=== PATIENT | male | born 1955 | race Hispanic/Latino ===

== ENCOUNTER 2018-08-15 13:19 | Outpatient (CLI) | payer BC ==
--- NOTE | 2018-08-19 13:03 | ULT ---
LOWER EXTREMITY ARTERIAL EVALUATION USING DOPPLER WAVEFORM ANALYSIS AND SEGMENTAL LIMB PRESSURES: 08/15/18 Segmental limb pressures could not be obtained in either lower extremity due to noncompressible tibia l arteries, most likely due to calcified yepez of the tibial vessels. With that being said, waveform analysis in the lower extremities, on the right demonstrated slightly abnormal waveform at the right common femoral level with relatively well preserved waveforms distally. On the left leg, the femoral waveform was relatively normal as was the popliteal with slightly diminished waveforms distally. This study would be consistent with possible right external iliac or common femoral artery disease and po ssibly tibioperoneal disease bilaterally based on heavy calcification and slightly abnormal waveforms .
== END 2018-08-15 13:20 | disposition home or self-care (01) ==
LOC: ULT 13:19
PROVIDERS: ATTEND Physician Assistant
DX: R09.89 Other specified symptoms and signs involving the circulatory and respiratory systems (principal)
CPT/HCPCS: 93922

== ENCOUNTER 2018-09-10 13:28 | Outpatient (CLI) | payer BC ==
--- NOTE | 2018-09-10 13:53 | RAD ---
RIGHT ANKLE 3 VIEWS: HISTORY: Fall ,Right ankle pain FINDINGS: The ankle mortise is maintained. No acute fracture or dislocation is identified. Calcaneal spurs and vascular calcifications are present.
--- NOTE | 2018-09-10 13:54 | RAD ---
RIGHT LEG 2 VIEWS: HISTORY: fall, right leg pain FINDINGS: The right tibia and fibula are intact.
--- NOTE | 2018-09-10 13:55 | RAD ---
XR Foot Rt 3 View STANDARD HISTORY: Fall, right foot pain FINDINGS: No fracture or dislocation is identified. Vascular calcifications and calcaneal spurs are present.
== END 2018-09-10 13:29 | disposition home or self-care (01) ==
LOC: BICRAD 13:28
PROVIDERS: ATTEND Physician Assistant
DX: M79.671 Pain in right foot (principal); M79.661 Pain in right lower leg; M25.571 Pain in right ankle and joints of right foot

== ENCOUNTER 2018-09-23 07:35 | Outpatient (CLI) | payer BC ==
--- NOTE | 2018-09-23 09:22 | CT ---
CTA ABDOMEN AND PELVIS AND LOWER EXTREMITIES WITH CONTRAST: 09/23/18 Axial images obtained following angio protocol with multiplanar reconstruction and 3D postprocessing. INDICATIONS: Right lower extremity pain. Peripheral arterial disease. FINDINGS: Abdominal aorta shows mild atherosclerotic change. There is no evidence of aneurysm. No evidence of d issection. Aortic branches including celiac artery, superior mesenteric artery, and renal arteries ap pear unremarkable with no evidence of stenosis. Aortic bifurcation is patent. The common iliac arteries are unremarkable. RIGHT LOWER EXTREMITY: Internal and external iliacs are unremarkable. Common femoral unremarkable. The profunda is patent and unremarkable. Superficial femoral arteries shows mild atherosclerotic changes throughout the thigh. There is mild s tenosis in Catracho's canal which does not appear to be hemodynamically significant. Popliteal artery shows atherosclerotic changes with calcification. No focal stenosis. Popliteal trifurcates below the knee. Atherosclerotic calcification seen in the arteries below the kn ee. There is three vessel runoff to the ankle. LEFT LOWER EXTREMITY: Internal and external iliacs are patent and unremarkable. Common femoral unremarkable. The profunda is patent and unremarkable. Superficial femoral arteries shows mild atherosclerotic calcification throughout its course. No evide nce of significant stenosis identified. Popliteal artery shows mild atherosclerotic changes without focal stenosis. Popliteal trifurcates below the knee space. Atherosclerotic calcification seen in all arteries below the knee. There is occlusion of the peroneal artery in the lower calf. Evidence of significant stenos is in the distal anterior tibial artery. Dorsal pedis is visualized at the foot and the posterior tib appears patent to the ankle although significant atherosclerotic disease is seen below the knees marco aterally. SOFT TISSUES: Liver, spleen, pancreas, adrenal glands and kidneys are unremarkable. Bowel loops unremarkable. IMPRESSION: Atherosclerotic changes seen in both lower extremities most pronounced below the knees bilaterally as described above. POS: [facility]
== END 2018-09-23 07:36 | disposition home or self-care (01) ==
LOC: CT 07:35
PROVIDERS: ATTEND Physician Assistant
DX: M79.661 Pain in right lower leg (principal); R68.89 Other general symptoms and signs; I70.201 Unspecified atherosclerosis of native arteries of extremities, right leg; I70.202 Unspecified atherosclerosis of native arteries of extremities, left leg
CPT/HCPCS: 75635; 82565

== ENCOUNTER 2019-07-24 07:38 | Outpatient (CLI) | payer MEDICARE ==
[2019-07-24] MEDS ORDERED: Iopamidol-370 76% 500 ML 1 ML ONE (09:24)
--- NOTE | 2019-07-24 09:57 | CT ---
CT ABDOMEN AND PELVIS WITH CONTRAST: COMPARISON: None. HISTORY: Constipation for 6 months. TECHNIQUE: Multiple contiguous axial images were obtained in a CT of the abdomen and pelvis with contrast. P.o. contrast was administered. Sagittal and coronal reformats were performed. FINDINGS: The liver, gallbladder, kidneys, adrenal glands, spleen, and pancreas are unremarkable. No free air, free fluid, or stranding changes are seen in the abdomen or pelvis. There is a moderate amount of stool throughout the colon. No obvious colon mass is appreciated. The small bowel is normal in caliber without significant distention. No abdominal or pelvic lymphadenop athy are seen. Atherosclerotic calcifications are seen in the aorta. Degenerative changes are seen in the spine. The visualized inferior thorax and abdominal wall soft t issues are unremarkable. IMPRESSION: Moderate stool retention in the colon. POS: [facility]
== END 2019-07-24 07:39 | disposition home or self-care (01) ==
LOC: BICCT 07:38
PROVIDERS: ATTEND Physician Assistant
DX: K59.00 Constipation, unspecified (principal)
CPT/HCPCS: 74177; 82565; Q9967

== ENCOUNTER 2019-10-15 08:11 | Outpatient (CLI) | payer MEDICARE ==
--- NOTE | 2019-10-15 09:20 | MRI ---
MRI BRAIN NONCONTRAST: DATE: 10/15/2019 HISTORY: 64-year-old male ICD-10: "R 41.3 memory deficit. " ICD-10: "R 26.89 balance problems" COMPARISON: None FINDINGS: There is no obstructive hydrocephalus. There is no midline shift or any other evidence of mass effect . There is no extra-axial fluid collection. There are T2-hyperintensities in the cerebral white matter consistent with moderate chronic ischemic white matter changes due to microvascular atheroscle rosis. There is diffuse brain parenchymal volume loss. There is no evidence of recent hemorrhage or restricted diffusion. At the inferior anterior aspect of the left middle cranial fossa, there is an a pproximately 1 cm focus of hypointense signal on gradient echo axial image. This region is isointense to adjacent bone and adjacent brain on FLAIR and T2 WI. It probably represents partial vol ume averaging with adjacent normal bone. The other possibility would be partially calcified small meningioma. There is no adjacent vasogenic edema, and therefore this is probably of little clinical s ignificance. IMPRESSION: 1) Involutional changes and moderate chronic ischemic white matter changes. 2) no acute or aggressive intracranial process.
== END 2019-10-15 08:12 | disposition home or self-care (01) ==
LOC: BICMRI 08:11
PROVIDERS: ATTEND Internal Medicine
DX: R41.3 Other amnesia (principal); R26.89 Other abnormalities of gait and mobility; I67.82 Cerebral ischemia
CPT/HCPCS: 70551

== ENCOUNTER 2020-03-26 01:32 | Inpatient (IN) | payer MEDICARE ==
[2020-03-26] MEDS ORDERED: Propofol 1,000 MG/100 ML VIAL IV ONE (01:41)
[2020-03-26 01:57] LABS: Mean Corpuscular HGB CONC 33.3 g/dL (32.0-36.0); Mean Corpuscular Hemoglobin 30.7 pg (27.0-31.0); Mean Platelet Volume 10.1 fL (7.4-10.4); Platelet Count 228 thou/uL (130-400); RBC Distribution Width 12.4 % (11.5-14.5); Red Blood Cell (RBC) Count 4.88 mill/uL (4.70-6.10); White Blood Cell (WBC) Count 13.7 thou/uL (4.8-10.8)
[2020-03-26 02:07] LABS: INR-International Normal Ratio 0.9; PTT 29.4 sec (22.9-36.1); Prothrombin Time 12.4 sec (12.0-14.7)
[2020-03-26] MEDS ORDERED: Ketamine 50 MG/ML (10ML VIAL) ONE (02:10)
[2020-03-26 02:18] LABS: ALT (SGPT) 20 U/L (8-55); AST (SGOT) 27 U/L (5-34); Albumin 2.9 g/dL (3.4-4.8); Alkaline Phosphatase 175 U/L (40-110); Anion Gap 27 mmol/L (10-20); BUN (Urea Nitrogen) 25 mg/dL (8.4-25.7); Bilirubin, Total 0.2 mg/dL (0.2-1.2); CK (CPK) 89 U/L (30-200); Calc. Creatinine Clearance 0 mL/min (70-130); Calcium 8.9 mg/dL (7.8-10.44); Carbon Dioxide 11 mmol/L (23-31); Chloride 102 mmol/L (98-107); Globulin 3.9 g/dL (2.4-3.5); Glucose 522 mg/dL (80-115); Potassium 5.9 mmol/L (3.5-5.1); Protein, Total 6.8 g/dL (5.8-8.1); Sodium 134 mmol/L (136-145)
[2020-03-26 02:20] LABS: Band 1 % (5-11); Eosinophils 4 % (0-10); Lymphocytes 42 % (21-51); MDiff Complete? YES; Monocytes 6 % (0-10); Neutrophil 44 % (42-75); Reactive Lymphocytes 3 % (0-10)
[2020-03-26 02:29] LABS: Actual Bicarbonate (HCO3a) 15.2 mEq/L (22-28); Base Excess (BEa) -12.2 mEq/L (-2.0 to +3.0); CO2 Tension 39.9 mmHg (35.0-45.0); O2 Tension (PaO2), arterial 272.1 mmHg (> 80.0)
[2020-03-26 02:30] LABS: Analyzer IN Cardio ER; Calcium, Ionized (arterial) 1.17 mmol/L (1.12-1.30); Carboxyhemoglobin (COHb) 0.9 gm% (0.0-3.0); Hemoglobin (Hb) 13.8 g/dL (14.0-18.0); Potassium - ABG Lab 4.12 mmol/L (3.70-5.30); Puncture Site RRA
[2020-03-26 02:31] LABS: ALV-art Gradient 391.025 mmHg (0-20)
[2020-03-26 02:39] LABS: Bacteria/HPF 1+ HPF (None Seen); Bilirubin Negative (Negative); Blood, Urine 2+ (Negative); Clarity Turbid (Clear); Glucose, Urine (Dipstick) Greater than 1000 mg/dL (Negative); Ketone, Urine Negative (Negative); Leukocyte Negative Leu/uL (Negative); Nitrite Negative (Negative); Protein, Urine (Dipstick) 300 mg/dL (Neg-Trace); Specific Gravity, Urine 1.026 (1.002-1.036); Squamous Epithelial 0-3 HPF (0-3); Urobilinogen Normal mg/dL (Less than 2)
[2020-03-26 02:40] LABS: Acetaminophen Less than 6.0 mcg/mL (10.0-30.0); Alcohol Less than 10 mg/dL (Less than 10); Salicylate Less than 8.0 mg/dL (15.0-30.0)
[2020-03-26] MEDS ORDERED: INSULIN REGULAR IN 0.9 % NACL 100 UNIT/100 ML BAG ONE (02:50)
[2020-03-26] MEDS ORDERED: Insulin Regular 300 UNITS/3 ML VIAL ONE (02:50)
[2020-03-26 03:13] LABS: Amphetamine Not Detected (NotDetected); Barbiturates Screen Not Detected (NotDetected); Benzodiazepine Screen Not Detected (NotDetected); Cocaine Metabolite Screen Not Detected (NotDetected); Medtox Control Line Valid? VALID (VALID); Medtox Reader # READER 4; Methadone Not Detected (NotDetected); Methamphetamine Not Detected (NotDetected); Opiate Screen Not Detected (NotDetected); Oxycodone Screen Not Detected (NotDetected); Phencyclidine (PCP) Not Detected (NotDetected); THC/Cannabinoid Screen Not Detected (NotDetected); Tricyclic Screen Not Detected (NotDetected)
[2020-03-26] MEDS ORDERED: Midazolam HCl 2 mg/2 ml Vial ONE (03:44)
[2020-03-26] MEDS ORDERED: Cefepime 2 GM VIAL ONE (03:46)
[2020-03-26] MEDS ORDERED: Vancomycin 1 GM/200 ML BAG ONE (03:46)
[2020-03-26 04:33] LABS: SARS-CoV-2 NAA Rapid Test Not Detected (NotDetected)
[2020-03-26] MEDS ORDERED: NS 0.9% w/ 20 MEQ KCL 1,000 ML IV PRN ×2 (05:09)
[2020-03-26] MEDS ORDERED: Electrolyte Replacement Protocol 1 EACH IVPB ONE (05:09)
[2020-03-26] MEDS ORDERED: Mag-Al 1200 mg/1200 mg/30 ML UDCUP PO PRN (05:09)
[2020-03-26] MEDS ORDERED: Bisacodyl 5 MG TAB PO PRN (05:09)
[2020-03-26] MEDS ORDERED: Milk Of Magnesia 30 ML UDCUP PO PRN (05:09)
[2020-03-26] MEDS ORDERED: Ondansetron PF 4 MG/2 ML Vial IVP PRN ×2 (05:09→05:12)
[2020-03-26] MEDS ORDERED: Sodium Chloride 0.9% 1,000 ML IV PRN ×4 (05:09)
[2020-03-26] MEDS ORDERED: D5 1/2 NS w/20 mEq KCL 1,000 ML IV PRN (05:09)
[2020-03-26] MEDS ORDERED: Norepinephrine 8 MG/0.9% NS 250 ML IVPB PRN (05:09)
[2020-03-26] MEDS ORDERED: Bisacodyl 10 MG SUPP PR PRN (05:09)
[2020-03-26] MEDS ORDERED: Acetaminophen 325 MG/10.15 ML UDCUP PO PRN (05:09)
[2020-03-26] MEDS ORDERED: Dextrose 5 %-0.45 % NaCl 1,000 ML IV PRN (05:09)
[2020-03-26] MEDS ORDERED: hydrALAZINE 20 MG/ML VIAL SLOW IVP PRN ×2 (05:12→16:26)
[2020-03-26] MEDS ORDERED: cloNIDine 0.1 MG TAB PO PRN (05:12)
[2020-03-26] MEDS ORDERED: Promethazine HCl 12.5 MG in Sodium Chloride 0.9% 50 ML IVPB PRN (05:12)
[2020-03-26] MEDS ORDERED: DISCONTINUE PREVIOUS NARCOTIC PAIN MEDICATIONS AND BENZODIAZEPINES FS SCH (05:15)
[2020-03-26] MEDS ORDERED: Ventilator Sedation Protocol 1 EACH FS SCH (05:15)
[2020-03-26] MEDS ORDERED: Lorazepam 2 MG/ML VIAL SLOW IVP PRN (05:15)
[2020-03-26] MEDS ORDERED: Fentanyl BOLUS 250 ML IVPB PRN (05:15)
[2020-03-26] MEDS ORDERED: Morphine 2 MG/ML VIAL SLOW IVP PRN (05:15)
[2020-03-26] MEDS ORDERED: Fentanyl CADD 100 ML IV SCH (05:15)
[2020-03-26] MEDS ORDERED: HUMULIN R 100 UNITS in Sodium Chloride 0.9% 100 ML IVPB SCH (05:15)
[2020-03-26] MEDS ORDERED: Propofol BOLUS 1,000 MG/100 ML VIAL IV PRN (05:15)
[2020-03-26] MEDS ORDERED: Propofol 1,000 MG/100 ML VIAL IV PRN (05:15)
--- NOTE | 2020-03-26 05:23 | PDOC.HHP ---
Hospitalist HPI Altered mental status History of Present Illness: Patient is a 65 year old male with PMH HTN, DM who presents to ED for altered mental status. Patient was walking to bed, he fell and became altered, BP was elevated and blood sugar 460, EMS called, in ED patient was agitated and not following commands, SBP was 280, patient intubated for airway protection. lactic acid 14, ketones elevated, CT and CTA head without acute defects, ph 7.2, UA suggestive of UTI, glucose 522. WBC 13. CXR unremarkable. Patient started on insulin drip, given vancomycin/cefepime, admitted for further workup and care. Allergies/Adverse Reactions: Allergy/AdvReac Type Severity Reaction Status Date / Time No Allergy Information Allergy Unverified 03/26/20 02:49 Available Home Medications: Medication Instructions Recorded Confirmed Type Unobtainable 03/26/20 03/26/20 History Past History: PMHx: DM, HTN PSHx: reviewed and not relevant FHx: reviewed and not relevant Social: reviewed and not relevant Hospitalist HPI ROS ROS unobtainable: due to endotracheal tube Hospitalist Exam Vitals: Vital Signs (12 hours) Temp Pulse 03/26/20 04:57 97.9 F 81 General - other findings: intubated, sedated Eye: PERRL, anicteric sclera ENT - other findings: et tube in place Neck: supple, symmetric, no JVD, no thyromegaly, no lymphadenopathy, no carotid bruit Heart: RRR, no murmur, no gallops, no rubs, normal peripheral pulses Respiratory: CTAB, no wheezes, no rales, no ronchi, normal chest expansion, no tachypnea, normal percussion Gastrointestinal: soft, non-tender, non-distended, normal bowel sounds, no palpable masses, no hepatomegaly, no splenomegaly, no bruit Extremities: no cyanosis, no clubbing, no edema Skin: normal turgor, no lesions, no rashes Neurological - other findings: sedated, no focal defecits noted Musculoskeletal: normal tone, normal strength, no muscle wasting Psychiatric - other findings: unable to evaluate Hospitalist Results Result Diagrams: 03/26/20 01:39 03/26/20 01:39 Lab results: Laboratory Last Values WBC 13.7 thou/uL (4.8-10.8) H 03/26/20 01:39 RBC 4.88 mill/uL (4.70-6.10) 03/26/20 01:39 Hgb 15.0 g/dL (14.0-18.0) 03/26/20 01:39 Hct 44.9 % (42.0-52.0) 03/26/20 01:39 MCV 92.0 fL (78.0-98.0) 03/26/20 01:39 MCH 30.7 pg (27.0-31.0) 03/26/20 01:39 MCHC 33.3 g/dL (32.0-36.0) 03/26/20 01:39 RDW 12.4 % (11.5-14.5) 03/26/20 01:39 Plt Count 228 thou/uL (130-400) 03/26/20 01:39 MPV 10.1 fL (7.4-10.4) 03/26/20 01:39 Neutrophils % (Manual) 44 % (42-75) 03/26/20 01:39 Band Neuts % (Manual) 1 % (5-11) L 03/26/20 01:39 Lymphocytes % (Manual) 42 % (21-51) 03/26/20 01:39 Reactive Lymphs % 3 % (0-10) 03/26/20 01:39 Monocytes % (Manual) 6 % (0-10) 03/26/20 01:39 Eosinophils % (Manual) 4 % (0-10) 03/26/20 01:39 Lymphocytes # Not Reportable 03/26/20 01:39 PT 12.4 sec (12.0-14.7) 03/26/20 01:39 INR 0.9 03/26/20 01:39 APTT 29.4 sec (22.9-36.1) 03/26/20 01:39 Specimen Type ARTERIAL 03/26/20 02:10 Puncture Site RRA 03/26/20 02:10 Bicarbonate Actual 15.2 mEq/L (22-28) L 03/26/20 02:10 ABG pH 7.20 (7.35-7.45) L* 03/26/20 02:10 ABG pCO2 39.9 mmHg (35.0-45.0) 03/26/20 02:10 ABG pO2 272.1 mmHg (> 80.0) H 03/26/20 02:10 ABG O2 Sat (Measured) 99.2 % (94.0-98.0) H 03/26/20 02:10 ABG Base Excess -12.2 mEq/L (-2.0 to +3.0) L 03/26/20 02:10 ABG Hematocrit 41.0 % (42.0-52.0) L 03/26/20 02:10 ABG Hemoglobin 13.8 g/dL (14.0-18.0) L 03/26/20 02:10 ABG Carboxyhemoglobin 0.9 gm% (0.0-3.0) 03/26/20 02:10 ABG Methemoglobin 0.90 gm% (0.04-1.52) 03/26/20 02:10 Anil Test POSITIVE 03/26/20 02:10 A-a O2 Gradient 391.025 mmHg (0-20) H 03/26/20 02:10 Sodium 134 mmol/L (135-148) L 03/26/20 02:10 Potassium 4.12 mmol/L (3.70-5.30) 03/26/20 02:10 Chloride 104 mmol/L (98-106) 03/26/20 02:10 Ionized Calcium 1.17 mmol/L (1.12-1.30) 03/26/20 02:10 Mode of Support SIMV 03/26/20 02:10 Mechanical Rate 14 min 03/26/20 02:10 Inspired O2 100 % 03/26/20 02:10 Tidal Volume 450 ml 03/26/20 02:10 Pressure Support 10 cmH2O 03/26/20 02:10 PEEP or CPAP 5.0 cmH2O 03/26/20 02:10 Sodium 134 mmol/L (136-145) L 03/26/20 01:39 Potassium 5.9 mmol/L (3.5-5.1) H 03/26/20 01:39 Chloride 102 mmol/L (98-107) 03/26/20 01:39 Carbon Dioxide 11 mmol/L (23-31) L 03/26/20 01:39 Anion Gap 27 mmol/L (10-20) H 03/26/20 01:39 BUN 25 mg/dL (8.4-25.7) 03/26/20 01:39 Creatinine 1.93 mg/dL (0.7-1.3) H 03/26/20 01:39 Estimated GFR (MDRD) 35 03/26/20 01:39 Glucose 522 mg/dL (80-115) H 03/26/20 01:39 POC Glucose 208 mg/dL (70-100) H 03/26/20 04:55 Lactic Acid 14.0 mmol/L (0.5-2.2) H* 03/26/20 01:39 Calcium 8.9 mg/dL (7.8-10.44) 03/26/20 01:39 Total Bilirubin 0.2 mg/dL (0.2-1.2) 03/26/20 01:39 AST 27 U/L (5-34) 03/26/20 01:39 ALT 20 U/L (8-55) 03/26/20 01:39 Alkaline Phosphatase 175 U/L (40-110) H 03/26/20 01:39 Creatine Kinase 89 U/L (30-200) 03/26/20 01:39 Troponin I Less than 0.010 ng/mL (< 0.028) 03/26/20 01:39 Serum Total Protein 6.8 g/dL (5.8-8.1) 03/26/20 01:39 Albumin 2.9 g/dL (3.4-4.8) L 03/26/20 01:39 Globulin 3.9 g/dL (2.4-3.5) H 03/26/20 01:39 Albumin/Globulin Ratio 0.7 g/dL (1.2-2.2) L 03/26/20 01:39 Urine Color Light-Yellow (Yellow) 03/26/20 02:21 Urine Clarity Turbid (Clear) A 03/26/20 02:21 Urine pH 6.0 (5.0-9.0) 03/26/20 02:21 Ur Specific [place] 1.026 (1.002-1.036) 03/26/20 02:21 Urine Protein 300 mg/dL (Neg-Trace) A 03/26/20 02:21 Urine Glucose (UA) Greater than 1000 mg/dL (Negative) A 03/26/20 02:21 Urine Ketones Negative mg/dL (Negative) 03/26/20 02:21 Urine Blood 2+ (Negative) A 03/26/20 02:21 Urine Nitrite Negative (Negative) 03/26/20 02:21 Urine Bilirubin Negative (Negative) 03/26/20 02:21 Urine Urobilinogen Normal mg/dL (Less than 2) 03/26/20 02:21 Ur Leukocyte Esterase Negative Abel[place]/uL (Negative) 03/26/20 02:21 Urine RBC 4-6 HPF (0-3) A 03/26/20 02:21 Urine WBC 7-10 HPF (0-3) A 03/26/20 02:21 Ur Squamous Epith Cells 0-3 HPF (0-3) 03/26/20 02:21 Urine Bacteria 1+ HPF (None Seen) A 03/26/20 02:21 Salicylates Less than 8.0 mg/dL (15.0-30.0) L 03/26/20 01:39 Urine Opiates Screen Not Detected (NotDetected) 03/26/20 02:21 Ur Oxycodone Screen Not Detected (NotDetected) 03/26/20 02:21 Urine Methadone Screen Not Detected (NotDetected) 03/26/20 02:21 Ur Propoxyphene Screen Not Detected (NotDetected) 03/26/20 02:21 Acetaminophen Less than 6.0 mcg/mL (10.0-30.0) L 03/26/20 01:39 Ur Barbiturates Screen Not Detected (NotDetected) 03/26/20 02:21 Ur Tricyclics Screen Not Detected (NotDetected) 03/26/20 02:21 Ur Phencyclidine Scrn Not Detected (NotDetected) 03/26/20 02:21 Ur Amphetamines Screen Not Detected (NotDetected) 03/26/20 02:21 U Methamphetamines Scrn Not Detected (NotDetected) 03/26/20 02:21 U Benzodiazepines Scrn Not Detected (NotDetected) 03/26/20 02:21 U Cocaine Metab Screen Not Detected (NotDetected) 03/26/20 02:21 U Cannabinoids Screen Not Detected (NotDetected) 03/26/20 02:21 Drug Screen Comment () 03/26/20 02:21 Plasma Alcohol Less than 10 mg/dL (Less than 10) 03/26/20 01:39 B-Hydroxybutyrate 0.31 mmol/L (0.02-0.27) H 03/26/20 01:39 Influenza A RNA INAAT Not Detected (NotDetected) 03/26/20 03:24 Influenza B RNA INAAT Not Detected (NotDetected) 03/26/20 03:24 SARS-CoV-2 Rap RNA(RT-PCR) Not Detected (NotDetected) 03/26/20 03:24 Additional comment: labs, imaging reports and ed documents reviewed as available. Hospitalist H&P A/P Plan: Patient is a 65 year old male with PMH HTN, DM who presents to ED for altered mental status. # DKA # sepsis # possible UTI # history of HTN Patient was walking to bed, he fell and became altered, BP was elevated and bloo d sugar 460, EMS called, in ED patient was agitated and not following commands, SBP was 280, patient intubated for airway protection. lactic acid 14, ketones elevated, CT and CTA head without acute defects, ph 7.2, UA suggestive of UTI, glucose 522. WBC 13. CXR unremarkable. Patient started on insulin drip, given vancomycin/cefepime, admitted for further workup and care. - admit to ICU - pulmonary consult - insulin drip, dka protocol - empiric vancomycin/zosyn - follow blood and urine cultures - appreciate critical care assistance with vent settings # DVT/GI ppx full code 56 minutes critical care time
[2020-03-26 05:45] LABS: Magnesium 1.9 mg/dL (1.6-2.6); Phosphorus 1.3 mg/dL (2.3-4.7)
[2020-03-26 06:00] LABS: Lactic Acid 3.4 mmol/L (0.5-2.2)
[2020-03-26] MEDS: Piperacillin/Tazobactam 3.375 GM in Sodium Chloride 0.9% 100 ML IVPB SCH ×4 (06:24→23:57)
[2020-03-26 06:31] LABS: Anion Gap 13 mmol/L (10-20); BUN (Urea Nitrogen) 24 mg/dL (8.4-25.7); Calc. Creatinine Clearance 54 mL/min (70-130); Calcium 7.3 mg/dL (7.8-10.44); Carbon Dioxide 15 mmol/L (23-31); Chloride 114 mmol/L (98-107); Glucose 263 mg/dL (80-115); Potassium 3.4 mmol/L (3.5-5.1); Sodium 139 mmol/L (136-145)
[2020-03-26] MEDS: Famotidine/PF 20 mg/2ml Vial SLOW IVP SCH (08:36)
--- NOTE | 2020-03-26 09:20 | CT ---
PRELIMINARY REPORT/[facility]/EMERGENCY AFTER HOURS PROCEDURE: Receipt of this report by the clinical staff was confirmed with Vanessa Atwood MD by Cecelia Montes on Mar 26, 2020 02:17:00 BLOOD BANK ORDER CONTROL CLERK. Addendum electronically signed by Kalyani Montes on March 26, 2020 2:17:18 AM BLOOD BANK ORDER CONTROL CLERK EXAM: CTA Head and Neck with Intravenous Contrast. CLINICAL HISTORY: *LEVEL 1 STROKE ALERT* M65, LSN @ 0120, PATIENT FOUND DOWN AND UNRESPONSIVE. TECHNIQUE: Axial CTA images of the head and neck performed with intravenous contrast. Two-dimensional MIP and/or three-dimensional MIP and volume rendered reformations were performed. Note: Per PQRS, the description of internal carotid artery percent stenosis, including 0 percent or n ormal exam, is based on [place] Symptomatic Carotid Endarterectomy Trial (NASCET) criteria. CONTRAST: With; ISOVUE 370,80mL COMPARISON: None provided. FINDINGS: CTA NECK: COMMON CAROTID ARTERIES No significant stenosis. No dissection or occlusion. INTERNAL CAROTID ARTERIES No stenosis by NASCET criteria. No dissection or occlusion. VERTEBRAL ARTERIES No significant stenosis. No dissection or occlusion. 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 CTA HEAD: ANTERIOR CEREBRAL ARTERIES No significant stenosis. No occlusion. No aneurysm. MIDDLE CEREBRAL ARTERIES No significant stenosis. No occlusion. No aneurysm. POSTERIOR CEREBRAL ARTERIES No significant stenosis. No occlusion. No aneurysm. BASILAR ARTERY No significant stenosis. No occlusion. No aneurysm. OTHER: SOFT TISSUES No acute finding. No masses or lymphadenopathy. BONES No acute osseous abnormality. IMPRESSION: Unremarkable CTA of the head and neck. ELECTRONICALLY SIGNED BY: Max Posey DO Mar 26, 2020 2:09:06 AM BLOOD BANK ORDER CONTROL CLERK This report is intended for review by the ordering physician only, in accordance of law. If you recei ve this report in error, please call [facility] at [phone]. FINAL REPORT CT ANGIOGRAM HEAD WITH 3D RENDERING. CT ANGIOGRAM NECK WITH 3D RENDERING EMERGENCY AFTER HOURS EXAM 1:57 A.M. 03/26/2020 FINDINGS: NG tube and endotracheal tubes are noted in place. There is some fluid in the esophagus. Small hypopl astic right vertebral artery which essentially ends in a PICA branch. No significant carotid artery s tenosis. Intracranially, there is no major branch occlusion or evidence for aneurysm. No M1 segment o cclusion. IMPRESSION: No significant stenosis or occlusion involving the neck or intracranially. This report is in agreement with preliminary report by [facility]. POS: [facility]
--- NOTE | 2020-03-26 09:22 | CT ---
PRELIMINARY REPORT/[facility]/EMERGENCY AFTER HOURS PROCEDURE: Receipt of this report by the clinical staff was confirmed with Vanessa Atwood MD by Cecelia Montes on Mar 26, 2020 02:17:00 SHELLFISH DREDGE OPERATOR. Addendum electronically signed by Kalyani Montes on March 26, 2020 2:17:38 AM SHELLFISH DREDGE OPERATOR EXAM: CT Head Without Intravenous Contrast. CLINICAL HISTORY: *LEVEL 1 STROKE ALERT* M65, LSN @ 0120, PATIENT FOUND DOWN AND UNRESPONSIVE. TECHNIQUE: Axial computed tomography images of the head/brain without intravenous contrast. COMPARISON: None provided. FINDINGS: BRAIN: Diffuse brain parenchymal volume loss with periventricular and subcortical white matter hypodensities . No acute intracranial hemorrhage, ventriculomegaly, or midline shift. ORBITS: No acute finding SINUSES AND MASTOIDS: The paranasal sinuses and mastoid air cells are clear. SOFT TISSUES: No significant facial or scalp soft tissue swelling evident. No radiopaque foreign body is seen. BONES: No acute skull fracture. IMPRESSION: 1. No acute intracranial abnormality. 2. Diffuse brain parenchymal atrophy with sequela of chronic small vessel ischemic disease. If there is persistent concern for infarct, recommend MRI. ELECTRONICALLY SIGNED BY: Max Posey DO Mar 26, 2020 2:05:45 AM SHELLFISH DREDGE OPERATOR This report is intended for review by the ordering physician only, in accordance of law. If you recei ve this report in error, please call [facility] at [phone]. FINAL REPORT BRAIN CT WITHOUT IV CONTRAST EMERGENCY AFTER HOURS STUDY 1:53 A.M. 03/26/2020 IMPRESSION: Age-related changes and chronic white matter ischemic change. No mass or bleed. This report is in agreement with preliminary report by [facility]. POS: [facility]
[2020-03-26 09:48] LABS: Anion Gap 11 mmol/L (10-20); BUN (Urea Nitrogen) 23 mg/dL (8.4-25.7); Calc. Creatinine Clearance 56 mL/min (70-130); Calcium 7.5 mg/dL (7.8-10.44); Carbon Dioxide 15 mmol/L (23-31); Chloride 117 mmol/L (98-107); Glucose 135 mg/dL (80-115); Potassium 3.4 mmol/L (3.5-5.1); Sodium 140 mmol/L (136-145)
--- NOTE | 2020-03-26 09:48 | RAD ---
SINGLE VIEW CHEST: Date: 03/26/2020 COMPARISON: 12/27/2019. HISTORY: Patient was found down and unresponsive with altered mental status. FINDINGS: Single view of the chest shows a cardiomediastinal silhouette which is upper limits of normal in size . There is an endotracheal tube with its tip in good position between the clavicles. A NG tube is see n in the stomach. There is no evidence of consolidation, mass, or pleural effusion. Degenerative smith ges are seen in the spine. IMPRESSION: Appropriate position of endotracheal tube and NG tube. POS: [facility]
[2020-03-26] MEDS ORDERED: Dextrose 50% Abboject 50 ML SYRINGE SLOW IVP PRN (10:42)
[2020-03-26] MEDS ORDERED: Dextrose 5% in Water 1,000 ML IV PRN (10:42)
[2020-03-26] MEDS ORDERED: Aspirin 325 MG TAB PER TUBE SCH (11:00)
[2020-03-26] MEDS ORDERED: 1/2 NS w/KCL 20 mEq 1,000 ML IV SCH (11:00)
[2020-03-26] MEDS ORDERED: Iopamidol-370 76% 500 ML 1 ML ONE (11:45)
[2020-03-26] MEDS: 1/2 NS w/KCL 20 mEq 1,000 ML IV SCH ×2 (12:23→23:57)
--- NOTE | 2020-03-26 13:08 | CON ---
DATE OF CONSULTATION: 03/26/2020 TIME OF CONSULTATION: 0810 hours. REASON FOR CONSULTATION: Critical Care consultation requested for ventilator management and critical care by hospitalist service. HISTORY OF PRESENT ILLNESS: The history is obtained from the medical record and from the spouse who is at the bedside, discussed with hospitalist. This is a 65-year-old male who was in his usual state of health with peripheral neuropathy; gait disorder, for which he should be using a cane and walker; diabetes. The patient had a second immune vaccine at a local facility 2 days ago. His only symptom was soreness at the site. Following the vaccine, he had no other symptoms; however, he was found to have fallen by his next to the couch. He did not hit his head. He was awake enough to assist him to try to stand and use his walker, but was complaining of right leg weakness. As she and her [id number] mobilized the patient with his walker, his right leg became weaker and weaker until he could not use it any longer. He then slumped to the floor and became unconscious. He was not responding to sternal rub or name. He had loss of bladder function. He had no tongue biting. He was noted to have rapid movements of the right side, but not in a tonic-clonic sense. Ambulance was called and the patient did not awaken even by the time the ambulance arrived. He was brought to the emergency room. He was intubated in the emergency room for altered mental status and had a CT of the brain done with chronic findings of volume loss and small vessel disease. He was noted to be hyperglycemic with anion gap. He was then sent to the ICU. The patient is reported by his spouse to have had a similar event in the past in November. HOME MEDICATIONS: Include, 1. Metformin. 2. Losartan. 3. Other medications unidentified today. PAST MEDICAL HISTORY: Diabetes and hypertension. FAMILY HISTORY: Unremarkable. SOCIAL HISTORY: Nonsmoker, nondrinker. PHYSICAL EXAMINATION: VITAL SIGNS: The patient's blood pressure has been 94/60 to 142/89 without pressors. MAP has been 71 to 106. Heart rate is in the 50s, respirations 18. He is on Precedex and Humulin R. He is on the ventilator. He is on SIMV 14, pressure support of 10, tidal volume 450, 40%, and PEEP of 5. GENERAL: The patient is sedated on mechanical ventilation. He is unresponsive. 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 Left eye pupil is 4 mm, reactive. Head and neck otherwise unremarkable. Orally intubated. Orogastric tube is in place. CARDIAC: Regular rhythm without murmur, rub, click, or gallop. RESPIRATIONS: Clear. No wheezes or rubs. GASTROINTESTINAL: Soft abdomen with normoactive bowel sounds. EXTREMITIES: He has edema of the left lower extremity at the ankle. NEUROLOGIC: He is sedated. SKIN: He has rashes on the dorsum of the foot and the hand. LABORATORY DATA: Shows white count of 13.7 with 44% neutrophils, 1% bands, 42% lymphs, 3% reactive lymphs, hemoglobin is 15, hematocrit 44, platelet count 228. Coags; 12.4 PT, 29.4 PTT. Arterial blood gas done at 2 a.m.; pH 7.20, pCO2 of 40, pO2 of 272, I do not know that settings that was on. Chemistries; sodium 140, potassium 3.4, chloride 117, bicarbonate 15, BUN 23, creatinine 1.5, glucose 135. CK was not done; CK-MB 4; troponin 0.065, slightly elevated. His chest x-ray is clear. The endotracheal tube terminates at the thoracic inlet. Echocardiogram has been ordered. EKG has been ordered. CURRENT MEDICATIONS: Include, 1. Zosyn. 2. Vancomycin. 3. Phenergan. 4. DuoNebs. 5. Enoxaparin prophylaxis. 6. Atorvastatin. 7. Clonidine. 8. Hydralazine. 9. Labetalol. 10. Precedex. 11. Fentanyl. 12. Propofol. 13. Morphine. 14. He has received fluids with I and O since admission of 562 in and 412 out. 15. He is on insulin drip. IMPRESSION: 1. Acute respiratory failure, done for protection of airway. 2. Possible stroke with negative initial CT of the head for acute ischemic stroke, possible seizure activity with postictal state following stroke. 3. Diabetes with metabolic acidosis. 4. Acute kidney injury. 5. Intravascular volume deficit. 6. Leukocytosis. 7. Poorly controlled diabetes. 8. No evidence of diabetic ketoacidosis. RECOMMENDATIONS: 1. Hold ventilator weaning until we get another CT to determine whether or not he had a stroke. 2. Suggest Neurologic consultation and possible EEG for postictal state. 3. Evaluate underlying lead toxicity due to prolonged exposure to hydrocarbons for 30 years. 4. Obtain a followup ABG. 5. Optimize ventilation and oxygenation. 6. Obtain CK levels for possible skeletal muscle injury. 7. Obtain followup troponins for possible acute coronary syndrome. 8. Obtain venous Doppler ultrasound for unilateral leg edema. 9. DVT and stress ulcer prophylaxis. 10. P.r.n. bronchodilators. 11. Evaluate possible side effect of immune vaccination. I am not sure if this was Tweegee or Pfizer vaccine. Further intervention and decisions will be based on the patient's clinical response. Discussed with the attending physician and followup CT of the brain has to be ordered for tomorrow. This has been explained to the family. I met with the patient's at the bedside. Total critical care time spent at bedside, 50 minutes. No overlap. Job ID: [id number]
[2020-03-26] MEDS ORDERED: FLU VACC QS2020-21(65YR UP)/PF 240 MCG/0.7 ML SYRINGE IM ONE (13:30)
[2020-03-26 13:52] LABS: Anion Gap 11 mmol/L (10-20); BUN (Urea Nitrogen) 22 mg/dL (8.4-25.7); Calc. Creatinine Clearance 56 mL/min (70-130); Calcium 7.8 mg/dL (7.8-10.44); Carbon Dioxide 16 mmol/L (23-31); Chloride 114 mmol/L (98-107); Glucose 159 mg/dL (80-115); Magnesium 1.8 mg/dL (1.6-2.6); Potassium 3.4 mmol/L (3.5-5.1); Sodium 138 mmol/L (136-145)
--- NOTE | 2020-03-26 14:18 | CON ---
DATE OF CONSULTATION: 03/26/2020 IMPRESSION: 1. Possible lacunar stroke with right leg weakness. 2. Diabetes with diabetic ketoacidosis. 3. Hypertension. PLAN: 1. Continue aspirin and a statin. 2. MRI of the brain when he is extubated. HISTORY OF PRESENT ILLNESS: Mr. Eason is a 65-year-old male with a known history of hypertension, diabetes. He told his that his right leg was feeling weak. She attempted to help him ambulate, but she could no longer hold him up. He went down to the ground. He apparently lost consciousness. She called for an ambulance to bring him to the hospital. Initial blood sugar was 460. His pH was 7.2. His bicarb level was 15. Tox screen was negative. COVID screen was negative. He had a mildly elevated white count of 13,000. His urine suggest the possibility of an infection. He CT and CT angiogram of the brain were both unremarkable. She denies that he has ever had any history of stroke. PAST MEDICAL HISTORY: As listed above. ALLERGIES: NONE. SOCIAL HISTORY: He is . No tobacco or drug use. FAMILY HISTORY: Noncontributory. REVIEW OF SYSTEMS: Not obtainable due to the fact he is intubated. PHYSICAL EXAMINATION: VITAL SIGNS: Blood pressure 157/104, pulse 58 in the sinus rhythm, saturations 100%, and respiratory rate of 18. HEENT: Pupils on the left is pinpoint. He has a patch over the right eye. Conjunctivae clear. Oropharynx is intubated. Cranium, normocephalic and atraumatic. NECK: Supple. No lymphadenopathy. ABDOMEN: Soft and nontender. EXTREMITIES: No cyanosis or edema. SKIN: Clear. NEUROLOGIC: He would awaken and followed commands. Getting to move all 4 extremities. Plantar response was upgoing on the right and downgoing on the left. No abnormal movements were seen. DIAGNOSTIC STUDIES: Chest x-ray was clear. SUMMARY: This is a 65-year-old male with risk factors for stroke, who presented with DKA and some reported right leg weakness. He does have an upgoing toe suggesting a possibility he may have had a minor stroke. His exam here looks fairly unremarkable at this point. I agree with your current treatment plan. Job ID: [id number]
[2020-03-26 14:29] LABS: Troponin I 0.053 ng/mL (< 0.028)
[2020-03-26] MEDS ORDERED: Magnesium 2 GM/50 ML 2 GM in Premix Bag 1 BAG IVPB SCH (16:45)
--- NOTE | 2020-03-26 19:43 | CON ---
DATE OF CONSULTATION: 03/26/2020 REASON FOR CONSULTATION: Altered mental state. HISTORY OF PRESENT ILLNESS: A 65-year-old patient, first admission to this hospital, who lives with his in [place]. He retired recently and basically he spends most of his time at home watching television. His routine is fairly set. He gets up at around 10 and drinks coffee, eats something and then goes to his recliner where he stays pretty much the whole day watching TV. He goes to bed at 11 p.m. and then rinse and repeat the next day, but on the day of admission, he apparently got up from his recliner trying to go to the restroom, but his found him next to the couch in living room and he was a little bit confused and he was complaining of weakness in his right lower extremity and could not ambulate or hold his weight and tried to lift them and he fell down. When he fell down, he was not alert and they did not recall any evidence of seizure activity. He had some saliva coming out from his mouth, but he did not appear to have bitten his tongue. He did not have a urine or fecal incontinence. EMS was activated and brought the patient to the emergency room. On arrival, his blood sugar was 460. He does check his blood sugar at home and it usually is 170, though the does not recall any complaints before this event, which happened fairly suddenly. In other words, his day had been until then pretty uneventful. No fever or chills. No pain. No vomiting. No diarrhea. No genitourinary symptoms. Initial findings; BP 240/145, pulse 139, respirations 24, O2 saturations are 100% on room air. Pupils are equal and reactive. His ocular movements appear intact. His neck was supple. Respiratory examination was normal. Heart examination showed tachycardia, but otherwise normal heart sounds. Abdomen was not tender or distended. He described that his extremities are moving well. He was initially diagnosed with DKA, but that was not confirmed. He even was transferred to the ICU, intubated, and placed on an insulin drip. He had extensive evaluation with a CT angiogram, which did not show any areas of obstruction. Brain CT with no changes. His previous brain MRI in October showed some small-vessel disease. He had an echocardiogram, which was not remarkable. His EF was 50%. Some diastolic dysfunction, somewhat thickened aortic leaflets. Currently, Mr. Eason is sedated. Before sedatives had been given, the states that he looked at her and seemed to have recognized her. She also recalled that he was moving all his 4 extremities. PAST MEDICAL HISTORY: Type 2 diabetes, hypertension. PAST SURGICAL HISTORY: Negative. FAMILY HISTORY: Diabetes. SOCIAL HISTORY: Retired. Lives with in [place]. CURRENT MEDICATIONS: 1. Inhalers. 2. Aspirin. 3. Lipitor. 4. Dulcolax. 5. Precedex. 6. Enoxaparin. 7. Pepcid. 8. Fentanyl. 9. Hydralazine. 10. Insulin. 11. Labetalol. 12. Lorazepam. 13. Zosyn. 14. Vancomycin. PHYSICAL EXAMINATION: VITAL SIGNS: He has been afebrile in the hospital since admission. O2 saturations are 100%. He is on FiO2 of 40. EXTREMITIES: He has a petechiae in the left hand pretty much right below the wrist restraint. The same phenomenon is not seen on right side. This is most likely due to the patient struggling against the restraints and it is causing venous hypertension in the hand. The same phenomenon is not seen on the right hand, so I suspect that he might have some weakness on that side. He has a peripheral IV access, indwelling Shel[place], and ET tube. HEENT: The pupils are symmetric about 2 mm and reactive. NECK: No jugular vein distention. LUNGS: Symmetric. Clear breath sounds. ELIZONDO: S1 and S2 without murmurs. No S3 or S4. ABDOMEN: Soft, not distended or tender. There is no guarding. There is no bladder distention. No organomegaly or ascites. MUSCULOSKELETAL: No joint inflammatory activity. No edema. Pulses are 1+ in dorsalis pedis. His extremities are flaccid right now. Plantar responses are indifferent. NEUROLOGIC: He is sedated. I cannot check his cognitive function. LABORATORY DATA: WBC 13.7, hemoglobin 15, platelets 228, 44% neutrophils, 1% bands, lymphocytes 42. INR is 0.9. The pH is 7.2, pCO2 is 39, and pO2 is 272. Chemistry on arrival; his CO2 was 11, sodium 134, creatinine 1.9. Lactic acid was 14. AST 27, ALT 20, alkaline phosphatase 175, albumin 2.1. Urinalysis with 7 to 10 wbc's. SARS-CoV-2 was not detected. Toxic screen, beta hydroxybutyrate was 0.31, which is mildly elevated. Blood cultures, we have 2 sets pending. Urine culture pending as well. Chest x-ray with no infiltrates. ASSESSMENT AND PLAN: Hypertension; type 2 diabetes; recent COVID-19 vaccine, he received the second vaccine just a few days ago and now acute decompensation with weakness in the leg and then loss of mental state for 25 minutes, now with possibility of acute cerebrovascular accident. He did have hyperlactatemia when he came in and the possibility of seizure activity is also considered. According to the , he was shaking his right upper extremity during the initial moments of this event. The acidosis is due to hyperlactatemia and not from diabetic ketoacidosis. He just has moderate hyperosmolar syndrome. We will have him on moderate hypoattenuation. He is on broad-spectrum coverage and blood cultures remain negative. Then, we will be able to discontinue the antimicrobials. Repeat imaging study of his brain will be carried out. Eventually, he may need an EEG study depending on his clinical progress. Job ID: [id number]
[2020-03-26] MEDS: Enoxaparin Sodium 40 MG/0.4 ML SYRINGE SC SCH (21:22)
[2020-03-26] MEDS: Atorvastatin Calcium 40 MG TAB PER TUBE SCH (21:22)
[2020-03-26] MEDS: Insulin Regular 300 UNITS/3 ML VIAL SC PRN (21:33)
[2020-03-26] MEDS ORDERED: Vancomycin 1.5 GRAM/300 ML BAG 1.5 GM in Premix Bag 1 BAG IVPB SCH (23:00)
[2020-03-27] MEDS: Insulin Regular 300 UNITS/3 ML VIAL SC PRN ×6 (00:24→21:48)
[2020-03-27 04:10] LABS: #Eosinphils 0.1 thou/uL (0.0-0.7); #Lymphocytes 1.4 thou/uL (1.20-3.40); #Monocytes 0.8 thou/uL (0.11-0.59); #Neutrophils 8.7 thou/uL (1.40-6.50); %Basophils 0.4 % (0.0-1.0); %Eosinophils 1.2 % (0.0-10.0); %Lymphocytes 12.4 % (21.0-51.0); %Monocytes 7.1 % (0.0-10.0); %Neutrophils 78.9 % (42.0-75.0); Hemoglobin 12.7 g/dL (14.0-18.0); Mean Corpuscular HGB CONC 33.3 g/dL (32.0-36.0); Mean Corpuscular Volume 90.1 fL (78.0-98.0); Mean Platelet Volume 10.2 fL (7.4-10.4); Platelet Count 201 thou/uL (130-400); RBC Distribution Width 12.8 % (11.5-14.5); Red Blood Cell (RBC) Count 4.25 mill/uL (4.70-6.10); White Blood Cell (WBC) Count 11.1 thou/uL (4.8-10.8)
[2020-03-27 04:37] LABS: Anion Gap 14 mmol/L (10-20); BUN (Urea Nitrogen) 26 mg/dL (8.4-25.7); Calc. Creatinine Clearance 49 mL/min (70-130); Calcium 7.8 mg/dL (7.8-10.44); Carbon Dioxide 14 mmol/L (23-31); Cardiac Risk 3.4 (Less than 4.5); Chloride 112 mmol/L (98-107); Cholesterol 138 mg/dl (< 200 Desired); Glucose 268 mg/dL (80-115); HDL Cholesterol 41 mg/dL (>60 Neg Risk); LDL Cholesterol, Calculated 72 mg/dL; Magnesium 2.4 mg/dL (1.6-2.6); Potassium 4.7 mmol/L (3.5-5.1); Sodium 135 mmol/L (136-145); Triglycerides 124 mg/dL (Less than 150)
[2020-03-27 05:00] LABS: Phosphorus 2.8 mg/dL (2.3-4.7)
[2020-03-27] MEDS: Piperacillin/Tazobactam 3.375 GM in Sodium Chloride 0.9% 100 ML IVPB SCH ×2 (05:42→11:45)
[2020-03-27 07:42] LABS: Actual Bicarbonate (HCO3a) 16.3 mEq/L (22-28); Base Excess (BEa) -7.5 mEq/L (-2.0 to +3.0); CO2 Tension 29.1 mmHg (35.0-45.0); Calcium, Ionized (arterial) 1.16 mmol/L (1.12-1.30); Carboxyhemoglobin (COHb) 0.5 gm% (0.0-3.0); Hemoglobin (Hb) 15.7 g/dL (14.0-18.0); O2 Tension (PaO2), arterial 105.8 mmHg (> 80.0); Potassium - ABG Lab 4.71 mmol/L (3.70-5.30); pH, Arterial 7.37 (7.35-7.45)
[2020-03-27 08:02] LABS: ALV-art Gradient 143.025 mmHg (0-20); Puncture Site RBA
[2020-03-27] MEDS: Famotidine/PF 20 mg/2ml Vial SLOW IVP SCH (08:59)
[2020-03-27] MEDS: Aspirin 325 MG TAB PER TUBE SCH (09:00)
[2020-03-27] MEDS: 1/2 NS w/KCL 20 mEq 1,000 ML IV SCH ×2 (09:45→13:08)
--- NOTE | 2020-03-27 09:46 | PDOC.HOSPP ---
- Subjective Encounter Date: 03/27/20 Encounter Time: 09:41 non-verbal Subjective: Patient seen and examined for encephalopathy. Intubated. On mechanical ventilation. Tolerating tube feeds. - Objective Vital Signs & Weight: Vital Signs (12 hours) Temp Pulse Resp BP Pulse Ox 03/27/20 08:03 65 03/27/20 08:00 97.4 F L 03/27/20 07:34 98 03/27/20 07:26 20 03/27/20 06:00 16 03/27/20 05:11 16 03/27/20 05:09 97.9 F 59 L 18 99 03/27/20 04:00 97.9 F 19 03/27/20 02:27 61 129/79 03/27/20 02:00 19 03/27/20 00:00 12 03/26/20 22:15 60 122/75 03/26/20 22:00 98.0 F 16 Weight Admit Weight 190 lb Weight 3.051 oz Most Recent Monitor Data Heart Rate from ECG 62 NIBP 147/85 NIBP BP-Mean 105 Respiration from ECG 26 SpO2 100 I&O: 03/26/20 03/27/20 03/28/20 06:59 06:59 06:59 Intake Total 562.8 5247 Output Total 150 1540 150 Balance 412.8 3707 -150 Result Diagrams: 03/27/20 03:33 03/27/20 03:33 Additional Labs: Accuchecks 03/27/20 03/27/20 03/26/20 07:11 00:09 16:26 POC Glucose 248 H 223 H 172 H 03/26/20 03/26/20 03/26/20 12:06 10:29 09:35 POC Glucose 145 H 145 H 127 H 03/27/20 03:33 03/27/20 03:33 Abnormal Lab Results - Last 48 hrs 03/26/20 01:39: WBC 13.7 H, Band Neuts % (Manual) 1 L 03/26/20 01:39: Sodium 134 L, Potassium 5.9 H, Carbon Dioxide 11 L, Anion Gap 27 H, Creatinine 1.93 H, Alkaline Phosphatase 175 H, Albumin 2.9 L, Globulin 3.9 H, Albumin/Globulin Ratio 0.7 L 03/26/20 01:39: Salicylates Less than 8.0 L, Acetaminophen Less than 6.0 L 03/26/20 01:39: Lactic Acid 14.0 H* 03/26/20 01:39: B-Hydroxybutyrate 0.31 H 03/26/20 02:10: Bicarbonate Actual 15.2 L, ABG pH 7.20 L*, ABG pO2 272.1 H, ABG O2 Sat (Measured) 99.2 H, ABG Base Excess -12.2 L, ABG Hematocrit 41.0 L, ABG Hemoglobin 13.8 L, A-a O2 Gradient 391.025 H, Sodium 134 L 03/26/20 02:21: Urine Clarity Turbid A, Urine Protein 300 A, Urine Glucose (UA) Greater than 1000 A, Urine Blood 2+ A, Urine RBC 4-6 A, Urine WBC 7-10 A, Urine Bacteria 1+ A 03/26/20 04:42: Phosphorus 1.3 L 03/26/20 04:42: Serum Osmolality 305 H 03/26/20 04:42: Potassium 3.4 L, Chloride 114 H, Carbon Dioxide 15 L, Creatinine 1.63 H, Calcium 7.3 L 03/26/20 05:31: Lactic Acid 3.4 H 03/26/20 09:16: Potassium 3.4 L, Chloride 117 H, Carbon Dioxide 15 L, Creatinine 1.58 H, Calcium 7.5 L 03/26/20 09:16: Troponin I 0.065 H 03/26/20 13:25: Potassium 3.4 L, Chloride 114 H, Carbon Dioxide 16 L, Creatinine 1.59 H 03/26/20 13:25: Troponin I 0.053 H 03/27/20 03:33: Sodium 135 L, Chloride 112 H, Carbon Dioxide 14 L, BUN 26 H, Creatinine 1.81 H 03/27/20 03:33: WBC 11.1 H, RBC 4.25 L, Hgb 12.7 L, Hct 38.3 L, Neutrophils % 78.9 H, Lymphocytes % 12.4 L, Neutrophils # 8.7 H, Monocytes # 0.8 H 03/27/20 07:28: Bicarbonate Actual 16.3 L, ABG pCO2 29.1 L, ABG pO2 105.8 H, ABG O2 Sat (Measured) 98.3 H, ABG O2 Content 21.6 H, ABG Base Excess -7.5 L, A-a O2 Gradient 143.025 H, Sodium 134 L, Chloride 113 H Vent - Assess Status Start: 03/26/20 04:57 Freq: Q2HR Status: Active Protocol: Document 03/27/20 07:26 KS (Rec: 03/27/20 07:28 KS [id number]) Ventilator Status/Info Patient/Vent Settings Endotracheal Tube Insertion Site Oral Endotracheal ETT Position (cm) 25 Trach Cuff Inflated Yes Ventilator Mode SIMV FIO2 40 Vent TV Set 450 Delivered TV 745 Patient TV (Spontaneous) Vent RR 18 Patient RR (12-20) 20 Peak Pressure (cmH2O) 32 PEEP (cm H2O) 5 PSV Sedation (RASS) Bentley Agitation-Sedation Scale (RASS): +4 = Combative: Combative, violent, immediate danger to staff +3 = Very agitated: Pulls to remove tubes or catheter; aggressive +2 = Agitated: Frequent non-purposeful movement, fights ventilator +1 = Restless: Anxious, apprehensive, movements not aggressive 0 = Alert and Calm: Spontaneously pays attention to caregiver -1 = Drowsy: Not fully alert, but has sustained awakening to voice -2 = Light sedation: Briefly awakens to voice (eyes contact < 10 secs) -3 = Moderate sedation: Movement or eye opening to voice (no eye contact) -4 = Deep sedation: No response to voice, but movement or eye opening to physical stimulation -5 = Unarousable: No response to voice or physical stimulation Sedation Yes Sedation Type Precedex RASS Goal Score RASS Actual Score [-2] Light sedation Intervention to attain goal Comfort Care Call Roy Within Reach Oral Care Teeth Brushing,Clorhexidine Oral Rinse,Oral Cavity Moisturizer HOB Angle (degrees) Patient Turned Left *If no, document why not Radiology Reviewed by me: Yes (Chest x-rayno new infiltrate) EKG Reviewed by me: Yes (SR on tele) Hospitalist ROS - Review of Systems ROS unobtainable: due to mental status - Medication Medications: Active Medications Generic Name Dose Route Start Last Admin Trade Name Freq PRN Reason Stop Dose Admin Aspirin 325 mg 03/27/20 09:00 03/27/20 09:00 Aspirin 325 Mg Tab PER TUBE 325 mg DAILY LELA Administration Atorvastatin Calcium 40 mg 03/26/20 21:00 03/26/20 21:22 Atorvastatin Calcium 40 Mg Tab PER TUBE 40 mg HS LELA Administration Enoxaparin Sodium 40 mg 03/26/20 21:00 03/26/20 21:22 Enoxaparin Sodium 40 Mg/0.4 Ml Syringe SC 40 mg 2100 LELA Administration Famotidine 20 mg 03/26/20 09:00 03/27/20 08:59 Famotidine/Pf 20 Mg/2ml Vial SLOW IVP 20 mg 0900 LELA Administration Hydralazine HCl 10 mg 03/26/20 05:12 03/26/20 15:54 Hydralazine 20 Mg/Ml Vial SLOW IVP 10 mg Q6H PRN Administration SBP GREATER THAN 160 Dexmedetomidine HCl 400 mcg/ 100 mls @ 0 mls/hr 03/26/20 03:00 03/27/20 06:34 Sodium Chloride IVPB 100 mls INF LELA Administration Protocol Titrate Piperacillin Sod/Tazobactam 100 mls @ 200 mls/hr 03/26/20 06:00 03/27/20 05:42 Sod 3.375 gm/ Sodium Chloride IVPB 100 mls Q6HR LELA Administration Vancomycin HCl 1.5 gm/ Device 300 mls @ 200 mls/hr 03/26/20 23:00 03/26/20 22:44 IVPB 300 mls 2300 LELA Administration Potassium Chloride/Sodium Chloride 1,000 mls @ 75 mls/hr 03/26/20 11:02 03/26/20 23:57 1/2 Ns W/Kcl 20 Meq IV 1,000 mls .[id number] LELA Administration Insulin Human Regular 0 units 03/26/20 10:42 03/27/20 09:00 Insulin Regular 300 Units/3 Ml Vial SC 4 unit .MODERATE SLIDING SC PRN Administration Moderate Correctional Scale Insulin Human Regular 0 units 03/26/20 10:42 03/27/20 00:24 Insulin Regular 300 Units/3 Ml Vial SC 2 unit .BEDTIME SLIDING SC PRN Administration Bedtime Correctional Scale Sodium Chloride 10 ml 03/26/20 21:00 03/27/20 08:59 Flush - Normal Saline 10 Ml Syringe IVF 10 ml Q12HR LELA Administration Hospitalist Exam Vitals: Vital Signs (12 hours) Temp Pulse Resp BP Pulse Ox 03/27/20 08:03 65 03/27/20 08:00 97.4 F L 03/27/20 07:34 98 03/27/20 07:26 20 03/27/20 06:00 16 03/27/20 05:11 16 03/27/20 05:09 97.9 F 59 L 18 99 03/27/20 04:00 97.9 F 19 03/27/20 02:27 61 129/79 03/27/20 02:00 19 03/27/20 00:00 12 03/26/20 22:15 60 122/75 03/26/20 22:00 98.0 F 16 Weight Admit Weight 190 lb Weight 3.051 oz Most Recent Monitor Data Heart Rate from ECG 62 NIBP 147/85 NIBP BP-Mean 105 Respiration from ECG 26 SpO2 100 General - other findings: Intubated, on mechanical ventilation Neck: supple, no JVD Heart: RRR, no gallops, no rubs, normal peripheral pulses Respiratory: no wheezes, no rales, rhonchi Respiratory - other findings: Endotracheal tube present Gastrointestinal: soft, normal bowel sounds, no guarding, no rigidity Extremities: no cyanosis, no clubbing, 1+ LE edema Skin: normal turgor Neurological - other findings: Neuro/psychexam limited due to current mentation Hosp A/P - Plan DVT proph w/SCDs 65-year-old male with hypertension, diabetes mellitus type 2 with COVID-19 vaccine (second dose) 2 days prior to admission presents with altered mentation along with questionable seizure-like activity and fall. His systolic blood pressure was over 200. His lactic acid on admission was around 14 with slight elevation of ketones. His pH was 7.2 with bicarbonate of 15, PCO2 39.9 and PO2 of 272. Toxic metabolic encephalopathy suspected due to acute CVA versus seizure versus hyperosmolar hyperglycemic statePOA Plan continue close monitoring. Repeat CT brain later today. Neuro input appreciated. Continue aspirin with statins. Stroke team Acute respiratory failure due to encephalopathy Plan: Continue mechanical ventilation. Critical care following. On ventilation sedation protocol Diabetes mellitus type 2 with hyperosmolar state on admission Plan: Add Lantus. Continue sliding scale. Metformin on hold. Patient normally takes 40 units of Lantus along with Metformin 500 mg twice daily LAST on CKD stage III/dehydration/severe metabolic acidosis with lactic acid of 14 on admission/hypomagnesemia. Lactic acidosis probably due to seizure. Blood cultures negative. Plan: IV fluid changed to lactated Ringer per critical care. Continue empiric antibiotics. No infectious etiology identified. Will discontinue antibiotics if cultures remain negative. Hypertension with hypertensive crisis on admission Plan: Losartan on hold due to hyperkalemia and LAST on admission. Will add amlodipine. Continue as needed antihypertensives. Home meds to be verified Hyperlipidemia Plan: Continue statins Diet: On tube feeds Restraints renewed Family updated A.m. labs ordered DVT prophylaxis: On Lovenox GI prophylaxis: On PPI Pressure ulcer precautions Stroke team
--- NOTE | 2020-03-27 11:36 | RAD ---
CHEST ONE VIEW: HISTORY: Stroke. Follow up unresponsive patient. COMPARISON: 03/26/2020 FINDINGS: NG tube and endotracheal tubes remain in place. Poor inspiratory effort. Increased markings bilateral ly, probably related to decreased inspiratory effort. No confluent pneumonia. IMPRESSION: Overall stable chest. Continued short-term followup. POS: RRE
--- NOTE | 2020-03-27 13:03 | PDOC.HOSPP ---
- Subjective Encounter Date: 03/27/20 Encounter Time: 10:00 - Objective Vital Signs & Weight: Vital Signs (12 hours) Temp Pulse Resp BP Pulse Ox 03/27/20 10:52 58 L 03/27/20 10:00 18 03/27/20 08:03 65 03/27/20 08:00 97.4 F L 03/27/20 07:34 98 03/27/20 07:26 20 03/27/20 06:00 16 03/27/20 05:11 16 03/27/20 05:09 97.9 F 59 L 18 99 03/27/20 04:00 97.9 F 19 03/27/20 02:27 61 129/79 03/27/20 02:00 19 Weight Admit Weight 190 lb Weight 3.051 oz Most Recent Monitor Data Heart Rate from ECG 65 NIBP 161/92 NIBP BP-Mean 115 Respiration from ECG 26 SpO2 100 I&O: 03/26/20 03/27/20 03/28/20 06:59 06:59 06:59 Intake Total 562.8 5247 Output Total 150 1540 410 Balance 412.8 3707 -410 Result Diagrams: 03/27/20 03:33 03/27/20 03:33 Additional Labs: Accuchecks 03/27/20 03/27/20 03/27/20 12:03 07:11 00:09 POC Glucose 289 H 248 H 223 H 03/26/20 16:26 POC Glucose 172 H Hospitalist ROS - Medication Medications: Active Medications Generic Name Dose Route Start Last Admin Trade Name Freq PRN Reason Stop Dose Admin Aspirin 325 mg 03/27/20 09:00 03/27/20 09:00 Aspirin 325 Mg Tab PER TUBE 325 mg DAILY LELA Administration Atorvastatin Calcium 40 mg 03/26/20 21:00 03/26/20 21:22 Atorvastatin Calcium 40 Mg Tab PER TUBE 40 mg HS LELA Administration Enoxaparin Sodium 40 mg 03/26/20 21:00 03/26/20 21:22 Enoxaparin Sodium 40 Mg/0.4 Ml Syringe SC 40 mg 2100 LELA Administration Famotidine 20 mg 03/26/20 09:00 03/27/20 08:59 Famotidine/Pf 20 Mg/2ml Vial SLOW IVP 20 mg 0900 LELA Administration Dexmedetomidine HCl 400 mcg/ 100 mls @ 0 mls/hr 03/26/20 03:00 03/27/20 10:19 Sodium Chloride IVPB 100 mls INF LELA Administration Protocol Titrate Piperacillin Sod/Tazobactam 100 mls @ 200 mls/hr 03/26/20 06:00 03/27/20 11:45 Sod 3.375 gm/ Sodium Chloride IVPB 100 mls Q6HR LELA Administration Vancomycin HCl 1.5 gm/ Device 300 mls @ 200 mls/hr 03/26/20 23:00 03/26/20 22:44 IVPB 300 mls 2300 LELA Administration Potassium Chloride/Sodium Chloride 1,000 mls @ 50 mls/hr 03/27/20 09:45 03/27/20 09:45 1/2 Ns W/Kcl 20 Meq IV Not Given .Q20H LELA Insulin Human Regular 0 units 03/26/20 10:42 03/27/20 12:05 Insulin Regular 300 Units/3 Ml Vial SC 6 unit .MODERATE SLIDING SC PRN Administration Moderate Correctional Scale Insulin Human Regular 0 units 03/26/20 10:42 03/27/20 00:24 Insulin Regular 300 Units/3 Ml Vial SC 2 unit .BEDTIME SLIDING SC PRN Administration Bedtime Correctional Scale Sodium Chloride 10 ml 03/26/20 21:00 03/27/20 08:59 Flush - Normal Saline 10 Ml Syringe IVF 10 ml Q12HR LELA Administration Hospitalist Exam Vitals: Vital Signs (12 hours) Temp Pulse Resp BP Pulse Ox 03/27/20 10:52 58 L 03/27/20 10:00 18 03/27/20 08:03 65 03/27/20 08:00 97.4 F L 03/27/20 07:34 98 03/27/20 07:26 20 03/27/20 06:00 16 03/27/20 05:11 16 03/27/20 05:09 97.9 F 59 L 18 99 03/27/20 04:00 97.9 F 19 03/27/20 02:27 61 129/79 03/27/20 02:00 19 Weight Admit Weight 190 lb Weight 3.051 oz Most Recent Monitor Data Heart Rate from ECG 65 NIBP 161/92 NIBP BP-Mean 115 Respiration from ECG 26 SpO2 100
[2020-03-27] MEDS ORDERED: Insulin Glargine 10 UNITS in Pre-Filled Syringe 1 EACH SC SCH (13:30)
--- NOTE | 2020-03-27 13:30 | PDOC.PULCC ---
CCU Progress Note: Subj/Obj - Subjective Date: 03/27/20 Time: 09:00 Subjective: following commands on precedex, alert, precedex d/c and placed on spont vent settings, tolerated well and by 1230 was extubated - ROS Review of Systems: Denies: cough, congestion, shortness of breath, exercise intolerance - Objective Allergies/Adverse Reactions: Allergies Allergy/AdvReac Type Severity Reaction Status Date / Time No Allergy Information Allergy Unverified 03/26/20 02:49 Available Medications: Current Medications Acetaminophen (Acetaminophen 325 Mg/10.15 Ml Udcup) 650 mg PO Q6H PRN PRN Reason: Fever > 101 or Mild Pain Al Hydroxide/Mg Hydroxide (Mag-Al 1200 Mg/1200 Mg/30 Ml Udcup) 30 ml PO Q8H PRN PRN Reason: Indigestion Aspirin (Aspirin 325 Mg Tab) 325 mg PER TUBE DAILY [facility] Last Admin: 03/27/20 09:00 Dose: 325 mg Documented by: Atorvastatin Calcium (Atorvastatin Calcium 40 Mg Tab) 40 mg PER TUBE HS [facility] Last Admin: 03/26/20 21:22 Dose: 40 mg Documented by: Bisacodyl (Bisacodyl 5 Mg Tab) 10 mg PO DAILYPRN PRN PRN Reason: Constipation Bisacodyl (Bisacodyl 10 Mg Supp) 10 mg MO DAILYPRN PRN PRN Reason: Constipation Dextrose/Water (Dextrose 50% Abboject 50 Ml Syringe) 25 gm SLOW IVP PRN PRN PRN Reason: Hypoglycemia Enoxaparin Sodium (Enoxaparin Sodium 40 Mg/0.4 Ml Syringe) 40 mg SC 2100 [facility] Last Admin: 03/26/20 21:22 Dose: 40 mg Documented by: Glucagon (Glucagon 1 Mg/Ml Vial) 1 mg IM PRN PRN PRN Reason: Hypoglycemia Hydralazine HCl (Hydralazine 20 Mg/Ml Vial) 10 mg SLOW IVP Q4H PRN PRN Reason: SBP GREATER THAN 160 Promethazine HCl 12.5 mg/ (Sodium Chloride) 50.5 mls @ 202 mls/hr IVPB Q6H PRN PRN Reason: Nausea/vomiting use second Piperacillin Sod/Tazobactam (Sod 3.375 gm/ Sodium Chloride) 100 mls @ 200 mls/hr IVPB Q6HR [facility] Last Admin: 03/27/20 11:45 Dose: 100 mls Documented by: Vancomycin HCl 1.5 gm/ Device 300 mls @ 200 mls/hr IVPB 2300 [facility]ELA Last Admin: 03/26/20 22:44 Dose: 300 mls Documented by: Dextrose/Water (D5w) 1,000 mls @ 0 mls/hr IV .Q0M PRN PRN Reason: Hypoglycemia Insulin Human Regular (Insulin Regular 300 Units/3 Ml Vial) 0 units SC .MODERATE SLIDING SC PRN PRN Reason: Moderate Correctional Scale Last Admin: 03/27/20 12:05 Dose: 6 unit Documented by: Insulin Human Regular (Insulin Regular 300 Units/3 Ml Vial) 0 units SC .BEDTIME SLIDING SC PRN PRN Reason: Bedtime Correctional Scale Last Admin: 03/27/20 00:24 Dose: 2 unit Documented by: Labetalol HCl (Labetalol Hcl 100 Mg/20 Ml Vial) 20 mg SLOW IVP Q4H PRN PRN Reason: SBP > 160 use first Lorazepam (Lorazepam 2 Mg/Ml Vial) 2 mg SLOW IVP Q1H PRN PRN Reason: Breakthrough agitation Stop: 04/25/20 05:15 Magnesium Hydroxide (Milk Of Magnesia 30 Ml Udcup) 30 ml PO Q8H PRN PRN Reason: Constipation Miscellaneous Medication (Pharmacy To Dose 1 Each) 1 each IVPB PRN PRN PRN Reason: Pharmacy to dose Morphine Sulfate (Morphine 2 Mg/Ml Vial) 2 mg SLOW IVP Q1H PRN PRN Reason: Breakthrough Pain/Agitation Stop: 04/25/20 05:15 Discontinue Previous Narcotic Pain Medications And Benzodiazepines 1 each FS .ONE [facility] Stop: 04/25/20 05:15 Ondansetron HCl (Ondansetron Pf 4 Mg/2 Ml Vial) 4 mg IVP Q6H PRN PRN Reason: Nausea/Vomiting use 1st Sodium Chloride (Flush - Normal Saline 10 Ml Syringe) 10 ml IVF Q12HR [facility] Last Admin: 03/27/20 08:59 Dose: 10 ml Documented by: Sodium Chloride (Flush - Normal Saline 10 Ml Syringe) 10 ml IVF PRN PRN PRN Reason: Saline Flush MAR Reviewed: Yes Vital Signs and I&O: Vital Signs Temp 97.4 F L 03/27/20 08:00 Pulse 58 L 03/27/20 10:52 Resp 18 02/14/21 10:00 BP 129/79 03/27/20 02:27 Pulse Ox 98 03/27/20 07:34 Intake & Output 03/26/20 03/27/20 03/27/20 18:59 06:59 18:59 Intake Total 1285 3962 Output Total 1000 540 410 Balance 285 3422 -410 Weight 190 lb 7.67 oz 3.051 oz Intake: Intake, IV Amount 885 3313 1/2 NS w/KCL 20 mEq 1,303 854 2159 ml @ 75 mls/hr IV . [id number] [facility] Rx#:[id number] Dexmedetomidine 400 mcg 203 174 In Sodium Chloride 0.9% 96 ml @ Titrate IVPB INF L[facility] Rx#:[id number] Magnesium 2 GM/50 ML 2 gm 50 In Premix Bag 1 bag @ 100 mls/hr IVPB NOW [facility] Rx#:[id number] Piperacillin/Tazobactam 3 200 400 .375 gm In Sodium Chloride 0.9% 100 ml @ 200 mls/hr IVPB Q6HR [facility] Rx#:[id number] Sodium Chloride 0.9% 10 120 ml IVF PRN PRN Rx#: [id number] Oral Supplement 30 Tube Feeding 469 Tube Irrigant 400 150 Output: Output, [place] 1000 540 410 Other: Voiding Method Indwelling Catheter Incontinent Indwelling Catheter Spontaneous Breathing Test: done (extubated 1230) CCU Progress Note: Exam - Physical Exam Deviation from normal: 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 negative: no rash Deviation from normal: chronic rash CCU Progress Note: Data - Labs Result Diagrams: 03/27/20 03:33 03/27/20 03:33 Lab results: Laboratory Results 03/26/20 03/26/20 03/26/20 01:39 01:39 01:39 WBC 13.7 H RBC 4.88 Hgb 15.0 Hct 44.9 MCV 92.0 MCH 30.7 MCHC 33.3 RDW 12.4 Plt Count 228 MPV 10.1 Neutrophils % Neutrophils % (Manual) 44 Band Neuts % (Manual) 1 L Lymphocytes % Lymphocytes % (Manual) 42 Reactive Lymphs % 3 Monocytes % Monocytes % (Manual) 6 Eosinophils % Eosinophils % (Manual) 4 Basophils % Neutrophils # Lymphocytes # Not Reportable Monocytes # Eosinophils # Basophils # PT 12.4 INR 0.9 APTT 29.4 Specimen Type Puncture Site Bicarbonate Actual ABG pH ABG pCO2 ABG pO2 ABG O2 Sat (Measured) ABG O2 Content ABG Base Excess ABG Hematocrit ABG Hemoglobin ABG Oxyhemoglobin ABG Carboxyhemoglobin ABG Methemoglobin ABG Deoxyhemoglobin Anil Test A-a O2 Gradient Ionized Calcium Mode of Support % Minute Volume Mechanical Rate Spontaneous Rate Inspired O2 Tidal Volume Spontaneous Tidal Vol Pressure Support PEEP or CPAP Sodium 134 L Potassium 5.9 H Chloride 102 Carbon Dioxide 11 L Anion Gap 27 H BUN 25 Creatinine 1.93 H Estimated GFR (MDRD) 35 Glucose 522 H POC Glucose Serum Osmolality Lactic Acid Calcium 8.9 Phosphorus Magnesium Total Bilirubin 0.2 AST 27 ALT 20 Alkaline Phosphatase 175 H Creatine Kinase 89 CK-MB (CK-2) Troponin I Serum Total Protein 6.8 Albumin 2.9 L Globulin 3.9 H Albumin/Globulin Ratio 0.7 L Triglycerides Cholesterol LDL Cholesterol, Calc HDL Cholesterol Heart Disease Risk Ratio Urine Color Urine Clarity Urine pH Ur Specific [place] Urine Protein Urine Glucose (UA) Urine Ketones Urine Blood Urine Nitrite Urine Bilirubin Urine Urobilinogen Ur Leukocyte Esterase Urine RBC Urine WBC Ur Squamous Epith Cells Urine Bacteria Salicylates Urine Opiates Screen Ur Oxycodone Screen Urine Methadone Screen Ur Propoxyphene Screen Acetaminophen Ur Barbiturates Screen Ur Tricyclics Screen Ur Phencyclidine Scrn Ur Amphetamines Screen U Methamphetamines Scrn U Benzodiazepines Scrn U Cocaine Metab Screen U Cannabinoids Screen Drug Screen Comment Plasma Alcohol B-Hydroxybutyrate Influenza A RNA INAAT Influenza B RNA INAAT SARS-CoV-2 Rap RNA(RT-PCR) 03/26/20 03/26/20 03/26/20 01:39 01:39 01:39 WBC RBC Hgb Hct MCV MCH MCHC RDW Plt Count MPV Neutrophils % Neutrophils % (Manual) Band Neuts % (Manual) Lymphocytes % Lymphocytes % (Manual) Reactive Lymphs % Monocytes % Monocytes % (Manual) Eosinophils % Eosinophils % (Manual) Basophils % Neutrophils # Lymphocytes # Monocytes # Eosinophils # Basophils # PT INR APTT Specimen Type Puncture Site Bicarbonate Actual ABG pH ABG pCO2 ABG pO2 ABG O2 Sat (Measured) ABG O2 Content ABG Base Excess ABG Hematocrit ABG Hemoglobin ABG Oxyhemoglobin ABG Carboxyhemoglobin ABG Methemoglobin ABG Deoxyhemoglobin Anil Test A-a O2 Gradient Ionized Calcium Mode of Support % Minute Volume Mechanical Rate Spontaneous Rate Inspired O2 Tidal Volume Spontaneous Tidal Vol Pressure Support PEEP or CPAP Sodium Potassium Chloride Carbon Dioxide Anion Gap BUN Creatinine Estimated GFR (MDRD) Glucose POC Glucose Serum Osmolality Lactic Acid 14.0 H* Calcium Phosphorus Magnesium Total Bilirubin AST ALT Alkaline Phosphatase Creatine Kinase CK-MB (CK-2) Troponin I Less than 0.010 Serum Total Protein Albumin Globulin Albumin/Globulin Ratio Triglycerides Cholesterol LDL Cholesterol, Calc HDL Cholesterol Heart Disease Risk Ratio Urine Color Urine Clarity Urine pH Ur Specific [place] Urine Protein Urine Glucose (UA) Urine Ketones Urine Blood Urine Nitrite Urine Bilirubin Urine Urobilinogen Ur Leukocyte Esterase Urine RBC Urine WBC Ur Squamous Epith Cells Urine Bacteria Salicylates Less than 8.0 L Urine Opiates Screen Ur Oxycodone Screen Urine Methadone Screen Ur Propoxyphene Screen Acetaminophen Less than 6.0 L Ur Barbiturates Screen Ur Tricyclics Screen Ur Phencyclidine Scrn Ur Amphetamines Screen U Methamphetamines Scrn U Benzodiazepines Scrn U Cocaine Metab Screen U Cannabinoids Screen Drug Screen Comment Plasma Alcohol Less than 10 B-Hydroxybutyrate Influenza A RNA INAAT Influenza B RNA INAAT SARS-CoV-2 Rap RNA(RT-PCR) 03/26/20 03/26/20 03/26/20 01:39 02:08 02:10 WBC RBC Hgb Hct MCV MCH MCHC RDW Plt Count MPV Neutrophils % Neutrophils % (Manual) Band Neuts % (Manual) Lymphocytes % Lymphocytes % (Manual) Reactive Lymphs % Monocytes % Monocytes % (Manual) Eosinophils % Eosinophils % (Manual) Basophils % Neutrophils # Lymphocytes # Monocytes # Eosinophils # Basophils # PT INR APTT Specimen Type ARTERIAL Puncture Site RRA Bicarbonate Actual 15.2 L ABG pH 7.20 L* ABG pCO2 39.9 ABG pO2 272.1 H ABG O2 Sat (Measured) 99.2 H ABG O2 Content ABG Base Excess -12.2 L ABG Hematocrit 41.0 L ABG Hemoglobin 13.8 L ABG Oxyhemoglobin ABG Carboxyhemoglobin 0.9 ABG Methemoglobin 0.90 ABG Deoxyhemoglobin Anil Test POSITIVE A-a O2 Gradient 391.025 H Ionized Calcium 1.17 Mode of Support SIMV % Minute Volume Mechanical Rate 14 Spontaneous Rate Inspired O2 100 Tidal Volume 450 Spontaneous Tidal Vol Pressure Support 10 PEEP or CPAP 5.0 Sodium 134 L Potassium 4.12 Chloride 104 Carbon Dioxide Anion Gap BUN Creatinine Estimated GFR (MDRD) Glucose POC Glucose 466 H Serum Osmolality Lactic Acid Calcium Phosphorus Magnesium Total Bilirubin AST ALT Alkaline Phosphatase Creatine Kinase CK-MB (CK-2) Troponin I Serum Total Protein Albumin Globulin Albumin/Globulin Ratio Triglycerides Cholesterol LDL Cholesterol, Calc HDL Cholesterol Heart Disease Risk Ratio Urine Color Urine Clarity Urine pH Ur Specific [place] Urine Protein Urine Glucose (UA) Urine Ketones Urine Blood Urine Nitrite Urine Bilirubin Urine Urobilinogen Ur Leukocyte Esterase Urine RBC Urine WBC Ur Squamous Epith Cells Urine Bacteria Salicylates Urine Opiates Screen Ur Oxycodone Screen Urine Methadone Screen Ur Propoxyphene Screen Acetaminophen Ur Barbiturates Screen Ur Tricyclics Screen Ur Phencyclidine Scrn Ur Amphetamines Screen U Methamphetamines Scrn U Benzodiazepines Scrn U Cocaine Metab Screen U Cannabinoids Screen Drug Screen Comment Plasma Alcohol B-Hydroxybutyrate 0.31 H Influenza A RNA INAAT Influenza B RNA INAAT SARS-CoV-2 Rap RNA(RT-PCR) 03/26/20 03/26/20 03/26/20 02:21 02:21 03:24 WBC RBC Hgb Hct MCV MCH MCHC RDW Plt Count MPV Neutrophils % Neutrophils % (Manual) Band Neuts % (Manual) Lymphocytes % Lymphocytes % (Manual) Reactive Lymphs % Monocytes % Monocytes % (Manual) Eosinophils % Eosinophils % (Manual) Basophils % Neutrophils # Lymphocytes # Monocytes # Eosinophils # Basophils # PT INR APTT Specimen Type Puncture Site Bicarbonate Actual ABG pH ABG pCO2 ABG pO2 ABG O2 Sat (Measured) ABG O2 Content ABG Base Excess ABG Hematocrit ABG Hemoglobin ABG Oxyhemoglobin ABG Carboxyhemoglobin ABG Methemoglobin ABG Deoxyhemoglobin Anil Test A-a O2 Gradient Ionized Calcium Mode of Support % Minute Volume Mechanical Rate Spontaneous Rate Inspired O2 Tidal Volume Spontaneous Tidal Vol Pressure Support PEEP or CPAP Sodium Potassium Chloride Carbon Dioxide Anion Gap BUN Creatinine Estimated GFR (MDRD) Glucose POC Glucose Serum Osmolality Lactic Acid Calcium Phosphorus Magnesium Total Bilirubin AST ALT Alkaline Phosphatase Creatine Kinase CK-MB (CK-2) Troponin I Serum Total Protein Albumin Globulin Albumin/Globulin Ratio Triglycerides Cholesterol LDL Cholesterol, Calc HDL Cholesterol Heart Disease Risk Ratio Urine Color Light-Yellow Urine Clarity Turbid A Urine pH 6.0 Ur Specific [place] 1.026 Urine Protein 300 A Urine Glucose (UA) Greater than 1000 A Urine Ketones Negative Urine Blood 2+ A Urine Nitrite Negative Urine Bilirubin Negative Urine Urobilinogen Normal Ur Leukocyte Esterase Negative Urine RBC 4-6 A Urine WBC 7-10 A Ur Squamous Epith Cells 0-3 Urine Bacteria 1+ A Salicylates Urine Opiates Screen Not Detected Ur Oxycodone Screen Not Detected Urine Methadone Screen Not Detected Ur Propoxyphene Screen Not Detected Acetaminophen Ur Barbiturates Screen Not Detected Ur Tricyclics Screen Not Detected Ur Phencyclidine Scrn Not Detected Ur Amphetamines Screen Not Detected U Methamphetamines Scrn Not Detected U Benzodiazepines Scrn Not Detected U Cocaine Metab Screen Not Detected U Cannabinoids Screen Not Detected Drug Screen Comment Plasma Alcohol B-Hydroxybutyrate Influenza A RNA INAAT Not Detected Influenza B RNA INAAT Not Detected SARS-CoV-2 Rap RNA(RT-PCR) Not Detected 03/26/20 03/26/20 03/26/20 04:03 04:42 04:42 WBC RBC Hgb Hct MCV MCH MCHC RDW Plt Count MPV Neutrophils % Neutrophils % (Manual) Band Neuts % (Manual) Lymphocytes % Lymphocytes % (Manual) Reactive Lymphs % Monocytes % Monocytes % (Manual) Eosinophils % Eosinophils % (Manual) Basophils % Neutrophils # Lymphocytes # Monocytes # Eosinophils # Basophils # PT INR APTT Specimen Type Puncture Site Bicarbonate Actual ABG pH ABG pCO2 ABG pO2 ABG O2 Sat (Measured) ABG O2 Content ABG Base Excess ABG Hematocrit ABG Hemoglobin ABG Oxyhemoglobin ABG Carboxyhemoglobin ABG Methemoglobin ABG Deoxyhemoglobin Anil Test A-a O2 Gradient Ionized Calcium Mode of Support % Minute Volume Mechanical Rate Spontaneous Rate Inspired O2 Tidal Volume Spontaneous Tidal Vol Pressure Support PEEP or CPAP Sodium Potassium Chloride Carbon Dioxide Anion Gap BUN Creatinine Estimated GFR (MDRD) Glucose POC Glucose 307 H Serum Osmolality 305 H Lactic Acid Calcium Phosphorus 1.3 L Magnesium 1.9 Total Bilirubin AST ALT Alkaline Phosphatase Creatine Kinase CK-MB (CK-2) Troponin I Serum Total Protein Albumin Globulin Albumin/Globulin Ratio Triglycerides Cholesterol LDL Cholesterol, Calc HDL Cholesterol Heart Disease Risk Ratio Urine Color Urine Clarity Urine pH Ur Specific [place] Urine Protein Urine Glucose (UA) Urine Ketones Urine Blood Urine Nitrite Urine Bilirubin Urine Urobilinogen Ur Leukocyte Esterase Urine RBC Urine WBC Ur Squamous Epith Cells Urine Bacteria Salicylates Urine Opiates Screen Ur Oxycodone Screen Urine Methadone Screen Ur Propoxyphene Screen Acetaminophen Ur Barbiturates Screen Ur Tricyclics Screen Ur Phencyclidine Scrn Ur Amphetamines Screen U Methamphetamines Scrn U Benzodiazepines Scrn U Cocaine Metab Screen U Cannabinoids Screen Drug Screen Comment Plasma Alcohol B-Hydroxybutyrate Influenza A RNA INAAT Influenza B RNA INAAT SARS-CoV-2 Rap RNA(RT-PCR) 03/26/20 03/26/20 03/26/20 04:42 04:55 05:31 WBC RBC Hgb Hct MCV MCH MCHC RDW Plt Count MPV Neutrophils % Neutrophils % (Manual) Band Neuts % (Manual) Lymphocytes % Lymphocytes % (Manual) Reactive Lymphs % Monocytes % Monocytes % (Manual) Eosinophils % Eosinophils % (Manual) Basophils % Neutrophils # Lymphocytes # Monocytes # Eosinophils # Basophils # PT INR APTT Specimen Type Puncture Site Bicarbonate Actual ABG pH ABG pCO2 ABG pO2 ABG O2 Sat (Measured) ABG O2 Content ABG Base Excess ABG Hematocrit ABG Hemoglobin ABG Oxyhemoglobin ABG Carboxyhemoglobin ABG Methemoglobin ABG Deoxyhemoglobin Anil Test A-a O2 Gradient Ionized Calcium Mode of Support % Minute Volume Mechanical Rate Spontaneous Rate Inspired O2 Tidal Volume Spontaneous Tidal Vol Pressure Support PEEP or CPAP Sodium 139 Potassium 3.4 L Chloride 114 H Carbon Dioxide 15 L Anion Gap 13 BUN 24 Creatinine 1.63 H Estimated GFR (MDRD) 43 Glucose 263 H POC Glucose 208 H Serum Osmolality Lactic Acid 3.4 H Calcium 7.3 L Phosphorus Magnesium Total Bilirubin AST ALT Alkaline Phosphatase Creatine Kinase CK-MB (CK-2) Troponin I Serum Total Protein Albumin Globulin Albumin/Globulin Ratio Triglycerides Cholesterol LDL Cholesterol, Calc HDL Cholesterol Heart Disease Risk Ratio Urine Color Urine Clarity Urine pH Ur Specific [place] Urine Protein Urine Glucose (UA) Urine Ketones Urine Blood Urine Nitrite Urine Bilirubin Urine Urobilinogen Ur Leukocyte Esterase Urine RBC Urine WBC Ur Squamous Epith Cells Urine Bacteria Salicylates Urine Opiates Screen Ur Oxycodone Screen Urine Methadone Screen Ur Propoxyphene Screen Acetaminophen Ur Barbiturates Screen Ur Tricyclics Screen Ur Phencyclidine Scrn Ur Amphetamines Screen U Methamphetamines Scrn U Benzodiazepines Scrn U Cocaine Metab Screen U Cannabinoids Screen Drug Screen Comment Plasma Alcohol B-Hydroxybutyrate Influenza A RNA INAAT Influenza B RNA INAAT SARS-CoV-2 Rap RNA(RT-PCR) 03/26/20 03/26/20 03/26/20 07:20 08:20 09:16 WBC RBC Hgb Hct MCV MCH MCHC RDW Plt Count MPV Neutrophils % Neutrophils % (Manual) Band Neuts % (Manual) Lymphocytes % Lymphocytes % (Manual) Reactive Lymphs % Monocytes % Monocytes % (Manual) Eosinophils % Eosinophils % (Manual) Basophils % Neutrophils # Lymphocytes # Monocytes # Eosinophils # Basophils # PT INR APTT Specimen Type Puncture Site Bicarbonate Actual ABG pH ABG pCO2 ABG pO2 ABG O2 Sat (Measured) ABG O2 Content ABG Base Excess ABG Hematocrit ABG Hemoglobin ABG Oxyhemoglobin ABG Carboxyhemoglobin ABG Methemoglobin ABG Deoxyhemoglobin Anil Test A-a O2 Gradient Ionized Calcium Mode of Support % Minute Volume Mechanical Rate Spontaneous Rate Inspired O2 Tidal Volume Spontaneous Tidal Vol Pressure Support PEEP or CPAP Sodium 140 Potassium 3.4 L Chloride 117 H Carbon Dioxide 15 L Anion Gap 11 BUN 23 Creatinine 1.58 H Estimated GFR (MDRD) 44 Glucose 135 H POC Glucose 107 H 113 H Serum Osmolality Lactic Acid Calcium 7.5 L Phosphorus Magnesium Total Bilirubin AST ALT Alkaline Phosphatase Creatine Kinase CK-MB (CK-2) Troponin I Serum Total Protein Albumin Globulin Albumin/Globulin Ratio Triglycerides Cholesterol LDL Cholesterol, Calc HDL Cholesterol Heart Disease Risk Ratio Urine Color Urine Clarity Urine pH Ur Specific [place] Urine Protein Urine Glucose (UA) Urine Ketones Urine Blood Urine Nitrite Urine Bilirubin Urine Urobilinogen Ur Leukocyte Esterase Urine RBC Urine WBC Ur Squamous Epith Cells Urine Bacteria Salicylates Urine Opiates Screen Ur Oxycodone Screen Urine Methadone Screen Ur Propoxyphene Screen Acetaminophen Ur Barbiturates Screen Ur Tricyclics Screen Ur Phencyclidine Scrn Ur Amphetamines Screen U Methamphetamines Scrn U Benzodiazepines Scrn U Cocaine Metab Screen U Cannabinoids Screen Drug Screen Comment Plasma Alcohol B-Hydroxybutyrate Influenza A RNA INAAT Influenza B RNA INAAT SARS-CoV-2 Rap RNA(RT-PCR) 03/26/20 03/26/20 03/26/20 09:16 09:16 09:35 WBC RBC Hgb Hct MCV MCH MCHC RDW Plt Count MPV Neutrophils % Neutrophils % (Manual) Band Neuts % (Manual) Lymphocytes % Lymphocytes % (Manual) Reactive Lymphs % Monocytes % Monocytes % (Manual) Eosinophils % Eosinophils % (Manual) Basophils % Neutrophils # Lymphocytes # Monocytes # Eosinophils # Basophils # PT INR APTT Specimen Type Puncture Site Bicarbonate Actual ABG pH ABG pCO2 ABG pO2 ABG O2 Sat (Measured) ABG O2 Content ABG Base Excess ABG Hematocrit ABG Hemoglobin ABG Oxyhemoglobin ABG Carboxyhemoglobin ABG Methemoglobin ABG Deoxyhemoglobin Anil Test A-a O2 Gradient Ionized Calcium Mode of Support % Minute Volume Mechanical Rate Spontaneous Rate Inspired O2 Tidal Volume Spontaneous Tidal Vol Pressure Support PEEP or CPAP Sodium Potassium Chloride Carbon Dioxide Anion Gap BUN Creatinine Estimated GFR (MDRD) Glucose POC Glucose 127 H Serum Osmolality Lactic Acid Calcium Phosphorus Magnesium Total Bilirubin AST ALT Alkaline Phosphatase Creatine Kinase CK-MB (CK-2) 4.0 Troponin I 0.065 H Serum Total Protein Albumin Globulin Albumin/Globulin Ratio Triglycerides Cholesterol LDL Cholesterol, Calc HDL Cholesterol Heart Disease Risk Ratio Urine Color Urine Clarity Urine pH Ur Specific [place] Urine Protein Urine Glucose (UA) Urine Ketones Urine Blood Urine Nitrite Urine Bilirubin Urine Urobilinogen Ur Leukocyte Esterase Urine RBC Urine WBC Ur Squamous Epith Cells Urine Bacteria Salicylates Urine Opiates Screen Ur Oxycodone Screen Urine Methadone Screen Ur Propoxyphene Screen Acetaminophen Ur Barbiturates Screen Ur Tricyclics Screen Ur Phencyclidine Scrn Ur Amphetamines Screen U Methamphetamines Scrn U Benzodiazepines Scrn U Cocaine Metab Screen U Cannabinoids Screen Drug Screen Comment Plasma Alcohol B-Hydroxybutyrate 0.12 Influenza A RNA INAAT Influenza B RNA INAAT SARS-CoV-2 Rap RNA(RT-PCR) 03/26/20 03/26/20 03/26/20 10:29 12:06 13:25 WBC RBC Hgb Hct MCV MCH MCHC RDW Plt Count MPV Neutrophils % Neutrophils % (Manual) Band Neuts % (Manual) Lymphocytes % Lymphocytes % (Manual) Reactive Lymphs % Monocytes % Monocytes % (Manual) Eosinophils % Eosinophils % (Manual) Basophils % Neutrophils # Lymphocytes # Monocytes # Eosinophils # Basophils # PT INR APTT Specimen Type Puncture Site Bicarbonate Actual ABG pH ABG pCO2 ABG pO2 ABG O2 Sat (Measured) ABG O2 Content ABG Base Excess ABG Hematocrit ABG Hemoglobin ABG Oxyhemoglobin ABG Carboxyhemoglobin ABG Methemoglobin ABG Deoxyhemoglobin Anil Test A-a O2 Gradient Ionized Calcium Mode of Support % Minute Volume Mechanical Rate Spontaneous Rate Inspired O2 Tidal Volume Spontaneous Tidal Vol Pressure Support PEEP or CPAP Sodium 138 Potassium 3.4 L Chloride 114 H Carbon Dioxide 16 L Anion Gap 11 BUN 22 Creatinine 1.59 H Estimated GFR (MDRD) 44 Glucose 159 H POC Glucose 145 H 145 H Serum Osmolality Lactic Acid Calcium 7.8 Phosphorus Magnesium 1.8 Total Bilirubin AST ALT Alkaline Phosphatase Creatine Kinase CK-MB (CK-2) Troponin I Serum Total Protein Albumin Globulin Albumin/Globulin Ratio Triglycerides Cholesterol LDL Cholesterol, Calc HDL Cholesterol Heart Disease Risk Ratio Urine Color Urine Clarity Urine pH Ur Specific [place] Urine Protein Urine Glucose (UA) Urine Ketones Urine Blood Urine Nitrite Urine Bilirubin Urine Urobilinogen Ur Leukocyte Esterase Urine RBC Urine WBC Ur Squamous Epith Cells Urine Bacteria Salicylates Urine Opiates Screen Ur Oxycodone Screen Urine Methadone Screen Ur Propoxyphene Screen Acetaminophen Ur Barbiturates Screen Ur Tricyclics Screen Ur Phencyclidine Scrn Ur Amphetamines Screen U Methamphetamines Scrn U Benzodiazepines Scrn U Cocaine Metab Screen U Cannabinoids Screen Drug Screen Comment Plasma Alcohol B-Hydroxybutyrate Influenza A RNA INAAT Influenza B RNA INAAT SARS-CoV-2 Rap RNA(RT-PCR) 03/26/20 03/26/20 03/26/20 13:25 13:25 13:25 WBC RBC Hgb Hct MCV MCH MCHC RDW Plt Count MPV Neutrophils % Neutrophils % (Manual) Band Neuts % (Manual) Lymphocytes % Lymphocytes % (Manual) Reactive Lymphs % Monocytes % Monocytes % (Manual) Eosinophils % Eosinophils % (Manual) Basophils % Neutrophils # Lymphocytes # Monocytes # Eosinophils # Basophils # PT INR APTT Specimen Type Puncture Site Bicarbonate Actual ABG pH ABG pCO2 ABG pO2 ABG O2 Sat (Measured) ABG O2 Content ABG Base Excess ABG Hematocrit ABG Hemoglobin ABG Oxyhemoglobin ABG Carboxyhemoglobin ABG Methemoglobin ABG Deoxyhemoglobin Anil Test A-a O2 Gradient Ionized Calcium Mode of Support % Minute Volume Mechanical Rate Spontaneous Rate Inspired O2 Tidal Volume Spontaneous Tidal Vol Pressure Support PEEP or CPAP Sodium Potassium Chloride Carbon Dioxide Anion Gap BUN Creatinine Estimated GFR (MDRD) Glucose POC Glucose Serum Osmolality Lactic Acid 2.0 Calcium Phosphorus Magnesium Total Bilirubin AST ALT Alkaline Phosphatase Creatine Kinase 157 CK-MB (CK-2) Troponin I 0.053 H Serum Total Protein Albumin Globulin Albumin/Globulin Ratio Triglycerides Cholesterol LDL Cholesterol, Calc HDL Cholesterol Heart Disease Risk Ratio Urine Color Urine Clarity Urine pH Ur Specific [place] Urine Protein Urine Glucose (UA) Urine Ketones Urine Blood Urine Nitrite Urine Bilirubin Urine Urobilinogen Ur Leukocyte Esterase Urine RBC Urine WBC Ur Squamous Epith Cells Urine Bacteria Salicylates Urine Opiates Screen Ur Oxycodone Screen Urine Methadone Screen Ur Propoxyphene Screen Acetaminophen Ur Barbiturates Screen Ur Tricyclics Screen Ur Phencyclidine Scrn Ur Amphetamines Screen U Methamphetamines Scrn U Benzodiazepines Scrn U Cocaine Metab Screen U Cannabinoids Screen Drug Screen Comment Plasma Alcohol B-Hydroxybutyrate Influenza A RNA INAAT Influenza B RNA INAAT SARS-CoV-2 Rap RNA(RT-PCR) 03/26/20 03/27/20 03/27/20 16:26 00:09 03:33 WBC RBC Hgb Hct MCV MCH MCHC RDW Plt Count MPV Neutrophils % Neutrophils % (Manual) Band Neuts % (Manual) Lymphocytes % Lymphocytes % (Manual) Reactive Lymphs % Monocytes % Monocytes % (Manual) Eosinophils % Eosinophils % (Manual) Basophils % Neutrophils # Lymphocytes # Monocytes # Eosinophils # Basophils # PT INR APTT Specimen Type Puncture Site Bicarbonate Actual ABG pH ABG pCO2 ABG pO2 ABG O2 Sat (Measured) ABG O2 Content ABG Base Excess ABG Hematocrit ABG Hemoglobin ABG Oxyhemoglobin ABG Carboxyhemoglobin ABG Methemoglobin ABG Deoxyhemoglobin Anil Test A-a O2 Gradient Ionized Calcium Mode of Support % Minute Volume Mechanical Rate Spontaneous Rate Inspired O2 Tidal Volume Spontaneous Tidal Vol Pressure Support PEEP or CPAP Sodium 135 L Potassium 4.7 Chloride 112 H Carbon Dioxide 14 L Anion Gap 14 BUN 26 H Creatinine 1.81 H Estimated GFR (MDRD) 38 Glucose 268 H POC Glucose 172 H 223 H Serum Osmolality Lactic Acid Calcium 7.8 Phosphorus Magnesium 2.4 Total Bilirubin AST ALT Alkaline Phosphatase Creatine Kinase CK-MB (CK-2) Troponin I Serum Total Protein Albumin Globulin Albumin/Globulin Ratio Triglycerides 124 Cholesterol 138 LDL Cholesterol, Calc 72 HDL Cholesterol 41 Heart Disease Risk Ratio 3.4 Urine Color Urine Clarity Urine pH Ur Specific [place] Urine Protein Urine Glucose (UA) Urine Ketones Urine Blood Urine Nitrite Urine Bilirubin Urine Urobilinogen Ur Leukocyte Esterase Urine RBC Urine WBC Ur Squamous Epith Cells Urine Bacteria Salicylates Urine Opiates Screen Ur Oxycodone Screen Urine Methadone Screen Ur Propoxyphene Screen Acetaminophen Ur Barbiturates Screen Ur Tricyclics Screen Ur Phencyclidine Scrn Ur Amphetamines Screen U Methamphetamines Scrn U Benzodiazepines Scrn U Cocaine Metab Screen U Cannabinoids Screen Drug Screen Comment Plasma Alcohol B-Hydroxybutyrate Influenza A RNA INAAT Influenza B RNA INAAT SARS-CoV-2 Rap RNA(RT-PCR) 03/27/20 03/27/20 03/27/20 03:33 03:33 07:11 WBC 11.1 H RBC 4.25 L Hgb 12.7 L Hct 38.3 L MCV 90.1 MCH 30.0 MCHC 33.3 RDW 12.8 Plt Count 201 MPV 10.2 Neutrophils % 78.9 H Neutrophils % (Manual) Band Neuts % (Manual) Lymphocytes % 12.4 L Lymphocytes % (Manual) Reactive Lymphs % Monocytes % 7.1 Monocytes % (Manual) Eosinophils % 1.2 Eosinophils % (Manual) Basophils % 0.4 Neutrophils # 8.7 H Lymphocytes # 1.4 Monocytes # 0.8 H Eosinophils # 0.1 Basophils # 0.0 PT INR APTT Specimen Type Puncture Site Bicarbonate Actual ABG pH ABG pCO2 ABG pO2 ABG O2 Sat (Measured) ABG O2 Content ABG Base Excess ABG Hematocrit ABG Hemoglobin ABG Oxyhemoglobin ABG Carboxyhemoglobin ABG Methemoglobin ABG Deoxyhemoglobin Anil Test A-a O2 Gradient Ionized Calcium Mode of Support % Minute Volume Mechanical Rate Spontaneous Rate Inspired O2 Tidal Volume Spontaneous Tidal Vol Pressure Support PEEP or CPAP Sodium Potassium Chloride Carbon Dioxide Anion Gap BUN Creatinine Estimated GFR (MDRD) Glucose POC Glucose 248 H Serum Osmolality Lactic Acid Calcium Phosphorus 2.8 Magnesium Total Bilirubin AST ALT Alkaline Phosphatase Creatine Kinase CK-MB (CK-2) Troponin I Serum Total Protein Albumin Globulin Albumin/Globulin Ratio Triglycerides Cholesterol LDL Cholesterol, Calc HDL Cholesterol Heart Disease Risk Ratio Urine Color Urine Clarity Urine pH Ur Specific [place] Urine Protein Urine Glucose (UA) Urine Ketones Urine Blood Urine Nitrite Urine Bilirubin Urine Urobilinogen Ur Leukocyte Esterase Urine RBC Urine WBC Ur Squamous Epith Cells Urine Bacteria Salicylates Urine Opiates Screen Ur Oxycodone Screen Urine Methadone Screen Ur Propoxyphene Screen Acetaminophen Ur Barbiturates Screen Ur Tricyclics Screen Ur Phencyclidine Scrn Ur Amphetamines Screen U Methamphetamines Scrn U Benzodiazepines Scrn U Cocaine Metab Screen U Cannabinoids Screen Drug Screen Comment Plasma Alcohol B-Hydroxybutyrate Influenza A RNA INAAT Influenza B RNA INAAT SARS-CoV-2 Rap RNA(RT-PCR) 03/27/20 03/27/20 07:28 12:03 WBC RBC Hgb Hct MCV MCH MCHC RDW Plt Count MPV Neutrophils % Neutrophils % (Manual) Band Neuts % (Manual) Lymphocytes % Lymphocytes % (Manual) Reactive Lymphs % Monocytes % Monocytes % (Manual) Eosinophils % Eosinophils % (Manual) Basophils % Neutrophils # Lymphocytes # Monocytes # Eosinophils # Basophils # PT INR APTT Specimen Type ARTERIAL Puncture Site RBA Bicarbonate Actual 16.3 L ABG pH 7.37 ABG pCO2 29.1 L ABG pO2 105.8 H ABG O2 Sat (Measured) 98.3 H ABG O2 Content 21.6 H ABG Base Excess -7.5 L ABG Hematocrit 46.0 ABG Hemoglobin 15.7 ABG Oxyhemoglobin 97.5 ABG Carboxyhemoglobin 0.5 ABG Methemoglobin 0.30 ABG Deoxyhemoglobin 1.7 Anil Test Not Reportable A-a O2 Gradient 143.025 H Ionized Calcium 1.16 Mode of Support SIMV % Minute Volume 8.9 Mechanical Rate 18 Spontaneous Rate 6 Inspired O2 40 Tidal Volume 450 Spontaneous Tidal Vol 627 Pressure Support 10 PEEP or CPAP 5.0 Sodium 134 L Potassium 4.71 Chloride 113 H Carbon Dioxide Anion Gap BUN Creatinine Estimated GFR (MDRD) Glucose POC Glucose 289 H Serum Osmolality Lactic Acid Calcium Phosphorus Magnesium Total Bilirubin AST ALT Alkaline Phosphatase Creatine Kinase CK-MB (CK-2) Troponin I Serum Total Protein Albumin Globulin Albumin/Globulin Ratio Triglycerides Cholesterol LDL Cholesterol, Calc HDL Cholesterol Heart Disease Risk Ratio Urine Color Urine Clarity Urine pH Ur Specific [place] Urine Protein Urine Glucose (UA) Urine Ketones Urine Blood Urine Nitrite Urine Bilirubin Urine Urobilinogen Ur Leukocyte Esterase Urine RBC Urine WBC Ur Squamous Epith Cells Urine Bacteria Salicylates Urine Opiates Screen Ur Oxycodone Screen Urine Methadone Screen Ur Propoxyphene Screen Acetaminophen Ur Barbiturates Screen Ur Tricyclics Screen Ur Phencyclidine Scrn Ur Amphetamines Screen U Methamphetamines Scrn U Benzodiazepines Scrn U Cocaine Metab Screen U Cannabinoids Screen Drug Screen Comment Plasma Alcohol B-Hydroxybutyrate Influenza A RNA INAAT Influenza B RNA INAAT SARS-CoV-2 Rap RNA(RT-PCR) - ABG Interpretation Attestation: I reviewed and interpreted this ABG. ABG Results: ABG pH 7.37 (7.35-7.45) 03/27/20 07:28 ABG pCO2 29.1 mmHg (35.0-45.0) L 03/27/20 07:28 ABG Base Excess -7.5 mEq/L (-2.0 to +3.0) L 03/27/20 07:28 - EKG Data Rate: normal CCU Progress Note: A/P - Plan Plan: Acute respiratory failure intubated for ?postictal state ? stroke initial CT head negative no evidence of seizures during admission Hyperglycemia Metabolic AG acidosis, may have mild DKA LAST LR 125cc/hr Lantus 10units SS insulin Monitor electrolytes check ketones in urine extubated this am CT head tonight 48 hours after event at home consider outpt neuro and or EEG monitoring bedside swallow Critical care 40 mins
[2020-03-27] MEDS ORDERED: Amlodipine 5 MG TAB PER TUBE SCH (13:45)
[2020-03-27] MEDS: Lactated Ringer's 1,000 ML IV SCH ×2 (15:05→20:45)
--- NOTE | 2020-03-27 17:48 | PRG ---
DATE OF SERVICE: 03/27/2020 SUBJECTIVE: The patient has been extubated. He is awake and knows where he is. He recalls that he was kind of confused at home and has been having issues with his mental state for the past week to two before he was admitted and does not recall any seizure activity. He does not drink alcoholic beverages anymore. He has had some headaches, but not right now. No sore throat. A little bit of odynophagia from the ET tube. No shortness of breath or chest pain. No abdominal pain. He has a [place] catheter. OBJECTIVE: VITAL SIGNS: T-max 98.6, BP 150/84, heart rate 58, respirations 17, O2 saturation 99%. GENERAL: He has that area of petechial eruption, which is probably from the restraints. He is moving all extremities well right now. EYES: His vision, left eye with normal vision. Pupils are reactive. LUNGS: Symmetric air entry. HEART: S1 and S2. Regular rate. No murmurs. ABDOMEN: Soft and a little bit distended, but not tender. No ascites. No bladder distention. EXTREMITIES: Moves all extremities equally. There is some edema noted. LABORATORY DATA: White cell count is down to 11.1, hemoglobin 12.7, and platelets 201 with 78% neutrophils. Creatinine is stable at 1.8, glucose 276. His carbon dioxide is 14. His lactic acid is down to 2 and last checked yesterday at 1 p.m. Microbiology, all negative thus far. ASSESSMENT AND DISCUSSION: Hypertension; type 2 diabetes; recent COVID-19 vaccine and acute development of altered mental state of unclear etiology, the possible cerebrovascular accident is still being worked up; hyperlactatemia with concern for possible seizure activity; hyperglycemia with hyperosmolar syndrome. The shaking in his hands are probably intention tremor rather than seizures, so at this point we will go ahead and discontinue antimicrobial therapy, and he may need an EEG and certainly need an MRI of his brain. Encephalitis is not likely since he has his mental status back to normal without any specific treatment. Job ID: [id number]
[2020-03-27 18:12] LABS: Syphilis Antibody Nonreactive (Nonreactive); Syphilis Antibody Index 0.03 S/CO (<1.00 Non-Reactive)
[2020-03-27] MEDS: Labetalol HCl 100 MG/20 ML VIAL SLOW IVP PRN (18:51)
[2020-03-27] MEDS: Amlodipine 5 MG TAB PER TUBE SCH (20:44)
[2020-03-27] MEDS: Enoxaparin Sodium 40 MG/0.4 ML SYRINGE SC SCH (20:44)
[2020-03-27] MEDS: Insulin Glargine 10 UNITS in Pre-Filled Syringe 1 EACH SC SCH (20:45)
[2020-03-27] MEDS: Atorvastatin Calcium 40 MG TAB PER TUBE SCH (20:48)
--- NOTE | 2020-03-27 21:59 | CT ---
CT BRAIN WITHOUT CONTRAST: Comparison: 03-26-2020 History: Stroke Technique: Multiple contiguous axial images were obtained in a CT of the brain without contrast. FINDINGS: There are diffuse scattered hypodensities in the subcortical and periventricular white matter, likely secondary to small vessel ischemic disease. No large confluent infarction is seen. There is no evide nce of hydrocephalus, intracranial hemorrhage or extraaxial fluid collection. The calvarium and overlying soft tissues are unremarkable. Mucosal thickening and fluid is seen in th e left maxillary and bilateral sphenoid sinuses. The mastoid air cells are well aerated. IMPRESSION: No evidence of acute intracranial abnormality. POS: EAA
[2020-03-27 22:27] LABS: Vancomycin, Trough 13.7 ug/mL
--- NOTE | 2020-03-28 12:14 | CON ---
DATE OF CONSULTATION: 03/28/2020 SUBJECTIVE: The patient is currently in the CCU for treatment of diabetic ketoacidosis, which has resolved. OBJECTIVE: GENERAL: He is awake and alert, and has no complaints. VITAL SIGNS: Temperature is 98.2, pulse 102, blood pressure 133/105. HEENT: Unremarkable. NECK: No adenopathy or JVD. LUNGS: Clear. CARDIAC: S1 and S2, regular. ABDOMEN: Soft. EXTREMITIES: No edema. LABORATORY DATA: His blood sugars have been in anywhere from 144 to 248. ASSESSMENT: 1. Diabetes mellitus type 2 with hyperglycemia at admission. 2. Hypertension. PLAN: He is stable enough for transfer to the floor. His antibiotics have been stopped. His Precedex has been stopped. We will be available as needed. Job ID: [id number]
--- NOTE | 2020-03-28 13:09 | RAD ---
3 views left hand: 03/28/2020 COMPARISON: None HISTORY: Left hand pain FINDINGS: There is atherosclerotic calcification in the region of the distal forearm as well as the l ateral aspect of the wrist and base of the hand laterally. There is degenerative change involving the first carpometacarpal joint, metacarpal phalangeal joint, and interphalangeal joint. There are degenerative changes involving the second and third distal interphalangeal joints. No acute fracture or dislocation. Soft tissue swelling is suspected involving the palmar and dorsal aspect of the hand. IMPRESSION: Probable nonspecific soft tissue swelling. Atherosclerotic calcification. No acute osseou s abnormality.
[2020-03-28] MEDS ORDERED: Carvedilol 6.25 MG TAB PO SCH (13:30)
--- NOTE | 2020-03-28 13:36 | RAD ---
RIGHT HIP 2 VIEWS: Date: 03/28/2020 HISTORY: Fall. Pain. FINDINGS: Right hip joint space is preserved. Visualized sacrum and bony pelvis are intact. Contour of the femo ral head and neck are maintained. No fracture. Extensive atherosclerosis. IMPRESSION: No fracture. If the patient is unable to bear weight, consider CT. POS: OFF
[2020-03-28 16:20] LABS: #Basophils 0.1 thou/uL (0.0-0.2); #Lymphocytes 1.4 thou/uL (1.20-3.40); #Monocytes 1.4 thou/uL (0.11-0.59); #Neutrophils 11.3 thou/uL (1.40-6.50); %Basophils 0.6 % (0.0-1.0); %Eosinophils 0.2 % (0.0-10.0); %Lymphocytes 10.2 % (21.0-51.0); %Monocytes 9.7 % (0.0-10.0); %Neutrophils 79.4 % (42.0-75.0); Hemoglobin 13.2 g/dL (14.0-18.0); Mean Corpuscular HGB CONC 33.1 g/dL (32.0-36.0); Mean Corpuscular Hemoglobin 29.9 pg (27.0-31.0); Mean Corpuscular Volume 90.3 fL (78.0-98.0); Mean Platelet Volume 10.4 fL (7.4-10.4); Platelet Count 229 thou/uL (130-400); Red Blood Cell (RBC) Count 4.42 mill/uL (4.70-6.10); White Blood Cell (WBC) Count 14.2 thou/uL (4.8-10.8)
[2020-03-28] MEDS: Insulin Glargine 10 UNITS in Pre-Filled Syringe 1 EACH SC SCH ×2 (17:22→21:16)
[2020-03-28] MEDS: Pantoprazole 40 MG GRANULES PACKET PER TUBE SCH (17:22)
[2020-03-28] MEDS: Aspirin 325 MG TAB PER TUBE SCH (17:22)
[2020-03-28] MEDS: Amlodipine 5 MG TAB PER TUBE SCH ×2 (17:22→21:14)
[2020-03-28] MEDS: Carvedilol 6.25 MG TAB PO SCH (17:23)
[2020-03-28] MEDS: Lactated Ringer's 1,000 ML IV SCH ×3 (17:23→21:17)
[2020-03-28 17:32] LABS: Anion Gap 14 mmol/L (10-20); BUN (Urea Nitrogen) 23 mg/dL (8.4-25.7); Calc. Creatinine Clearance 0 mL/min (70-130); Calcium 8.4 mg/dL (7.8-10.44); Carbon Dioxide 17 mmol/L (23-31); Chloride 116 mmol/L (98-107); Glucose 107 mg/dL (80-115); Potassium 3.6 mmol/L (3.5-5.1); Sodium 143 mmol/L (136-145)
--- NOTE | 2020-03-28 17:49 | PDOC.HOSPP ---
- Subjective Encounter Date: 03/28/20 Encounter Time: 10:30 Subjective: Patient seen and examined for encephalopathy. Extubated yesterday. Denies any new complaints. No chest pain, shortness of breath, palpitations or new focal deficit reported. - Objective Vital Signs & Weight: Vital Signs (12 hours) Pulse Pulse BP BP Pulse Ox Pulse Ox 03/28/20 15:01 107 H 103 H 176/98 H 161/95 H 100 100 03/28/20 10:27 115 H 117 H 174/111 H 224/163 H 100 100 Weight Admit Weight 190 lb Weight 3.051 oz Most Recent Monitor Data Heart Rate from ECG 102 NIBP 133/105 NIBP BP-Mean 114 Respiration from ECG 24 SpO2 98 I&O: 03/27/20 03/28/20 03/29/20 06:59 06:59 06:59 Intake Total 5247 2163 Output Total 1540 1680 Balance 3707 483 Result Diagrams: 03/28/20 03:40 03/28/20 03:40 Additional Labs: Accuchecks 03/28/20 03/28/20 03/28/20 12:12 08:07 04:21 POC Glucose 190 H 108 H 101 H 03/27/20 23:35 POC Glucose 144 H Abnormal Lab Results - Last 48 hrs 03/27/20 03:33: Sodium 135 L, Chloride 112 H, Carbon Dioxide 14 L, BUN 26 H, Creatinine 1.81 H 03/27/20 03:33: WBC 11.1 H, RBC 4.25 L, Hgb 12.7 L, Hct 38.3 L, Neutrophils % 78.9 H, Lymphocytes % 12.4 L, Neutrophils # 8.7 H, Monocytes # 0.8 H 03/27/20 07:28: Bicarbonate Actual 16.3 L, ABG pCO2 29.1 L, ABG pO2 105.8 H, ABG O2 Sat (Measured) 98.3 H, ABG O2 Content 21.6 H, ABG Base Excess -7.5 L, A-a O2 Gradient 143.025 H, Sodium 134 L, Chloride 113 H 03/28/20 03:40: WBC 14.2 H, RBC 4.42 L, Hgb 13.2 L, Hct 39.9 L, Neutrophils % 79.4 H, Lymphocytes % 10.2 L, Neutrophils # 11.3 H, Monocytes # 1.4 H 03/28/20 03:40: Chloride 116 H, Carbon Dioxide 17 L, Creatinine 1.83 H 03/28/20 03:40: C-Reactive Protein 7.84 H Microbiology - Entire Visit 03/26/20 05:43 Venous blood - Right Hand Blood Culture - Preliminary NO GROWTH AT 48 HOURS 03/26/20 05:43 Venous blood - Left Hand Blood Culture - Preliminary NO GROWTH AT 48 HOURS 03/26/20 02:21 Urine [place] catheter Urine Culture - Final NO GROWTH AT 48 HOURS 03/26/20 Unknown Sputum Respiratory Culture - Final Radiology Reviewed by me: Yes (CT brainno acute abnormality) EKG Reviewed by me: Yes (Sinus rhythm on telemetry) Hospitalist ROS - Review of Systems Cardiovascular: denies: chest pain, palpitations, orthopnea, paroxysmal noc. dyspnea, edema, light headedness, other Gastrointestinal: denies: nausea, vomiting, abdominal pain, diarrhea, constipation, melena, hematochezia, other - Medication Medications: Active Medications Generic Name Dose Route Start Last Admin Trade Name Freq PRN Reason Stop Dose Admin Amlodipine Besylate 5 mg 03/27/20 21:00 03/28/20 17:22 Amlodipine 5 Mg Tab PER TUBE Not Given BID [facility] Aspirin 325 mg 03/27/20 09:00 03/28/20 17:22 Aspirin 325 Mg Tab PER TUBE Not Given DAILY [facility] Atorvastatin Calcium 40 mg 03/26/20 21:00 03/27/20 20:48 Atorvastatin Calcium 40 Mg Tab PER TUBE 40 mg HS [facility] Administration Carvedilol 6.25 mg 03/28/20 17:00 03/28/20 17:23 Carvedilol 6.25 Mg Tab PO Not Given BID[facility] Enoxaparin Sodium 40 mg 03/26/20 21:00 03/27/20 20:44 Enoxaparin Sodium 40 Mg/0.4 Ml Syringe SC 40 mg 2100 LELA Administration Hydralazine HCl 10 mg 03/26/20 16:26 03/27/20 15:05 Hydralazine 20 Mg/Ml Vial SLOW IVP 10 mg Q4H PRN Administration SBP GREATER THAN 160 Insulin Glargine 10 units/ 0.1 mls @ 0 mls/hr 03/27/20 21:00 03/28/20 17:22 Miscellaneous Medication SC Not Given BID [facility] Lactated Ringer's 1,000 mls @ 25 mls/hr 03/28/20 12:21 03/28/20 17:23 Lactated Ringer's IV Not Given .Q24H [facility] Insulin Human Regular 0 units 03/26/20 10:42 03/27/20 21:48 Insulin Regular 300 Units/3 Ml Vial SC 4 unit .MODERATE SLIDING SC PRN Administration Moderate Correctional Scale Insulin Human Regular 0 units 03/26/20 10:42 03/27/20 00:24 Insulin Regular 300 Units/3 Ml Vial SC 2 unit .BEDTIME SLIDING SC PRN Administration Bedtime Correctional Scale Labetalol HCl 20 mg 03/26/20 05:12 03/27/20 18:51 Labetalol Hcl 100 Mg/20 Ml Vial SLOW IVP 20 mg Q4H PRN Administration SBP > 160 use first Pantoprazole Sodium 40 mg 03/28/20 09:00 03/28/20 17:22 Pantoprazole 40 Mg Granules Packet PER TUBE Not Given DAILY [facility] Sodium Chloride 10 ml 03/26/20 21:00 03/28/20 17:22 Flush - Normal Saline 10 Ml Syringe IVF Not Given Q12HR [facility] Hospitalist Exam Vitals: Vital Signs (12 hours) Pulse Pulse BP BP Pulse Ox Pulse Ox 03/28/20 15:01 107 H 103 H 176/98 H 161/95 H 100 100 03/28/20 10:27 115 H 117 H 174/111 H 224/163 H 100 100 Weight Admit Weight 190 lb Weight 3.051 oz Most Recent Monitor Data Heart Rate from ECG 102 NIBP 133/105 NIBP BP-Mean 114 Respiration from ECG 24 SpO2 98 General Appearance: awake alert Neck: supple, no JVD Heart: RRR, no gallops Respiratory: no wheezes, no ronchi Gastrointestinal: soft, non-tender, normal bowel sounds Extremities: no cyanosis, no clubbing Neurological: cranial nerve grossly intact, normal sensation to touch, no weak ness, no focal deficits, no new deficit Psychiatric: normal affect, A&O x 3 Hosp A/P (1) Toxic metabolic encephalopathy Code(s): G92 - TOXIC ENCEPHALOPATHY Status: Acute (2) Acute respiratory failure, unspecified whether with hypoxia or hypercapnia Code(s): J96.00 - ACUTE RESPIRATORY FAILURE, UNSP W HYPOXIA OR HYPERCAPNIA Status: Acute (3) Acute kidney injury superimposed on CKD Code(s): N17.9 - ACUTE KIDNEY FAILURE, UNSPECIFIED; N18.9 - CHRONIC KIDNEY DISEASE, UNSPECIFIED Status: Acute (4) Hyperosmolar hyperglycemic state (HHS) Code(s): E11.00 - TYPE 2 DIAB W HYPROSM W/O NONKET HYPRGLY-HYPROS COMA (NKHHC); E11.65 - TYPE 2 DIABETES MELLITUS WITH HYPERGLYCEMIA Status: Acute (5) Metabolic acidosis Code(s): E87.2 - ACIDOSIS Status: Acute (6) Lactic acidosis Code(s): E87.2 - ACIDOSIS Status: Acute (7) Hypertensive crisis Code(s): I16.9 - HYPERTENSIVE CRISIS, UNSPECIFIED Status: Acute (8) Diabetes mellitus type 2, uncontrolled Code(s): E11.65 - TYPE 2 DIABETES MELLITUS WITH HYPERGLYCEMIA Status: Acute (9) Hypertension, uncontrolled Code(s): I10 - ESSENTIAL (PRIMARY) HYPERTENSION Status: Acute (10) Hyperlipidemia Code(s): E78.5 - HYPERLIPIDEMIA, UNSPECIFIED Status: Chronic (11) Blindness of right eye Code(s): H54.40 - BLINDNESS, ONE EYE, UNSPECIFIED EYE Status: Chronic - Plan 65-year-old male with hypertension, diabetes mellitus type 2 with COVID-19 vaccine (second dose) 2 days prior to admission presents with altered mentation along with questionable seizure-like activity and fall. His systolic blood pressure was over 200. His lactic acid on admission was around 14 with slight elevation of ketones. His pH was 7.2 with bicarbonate of 15, PCO2 39.9 and PO2 of 272. Patient was intubated in ER for airway protection. Initial CT scan of the brain was negative for acute abnormality. CTA of the head and neck was negative for hemodynamically significant stenosis. He was initially started on DKA protocol with IV fluids and insulin drip. Insulin drip was discontinued next morning. Initial CT brain was negative for acute abnormality. His lactic acid gradually improved. Patient was evaluated by multiple consultants including neurology, critical care and infectious disease. He was also started on aspirin and statin for suspected CVA. On 03/27 patient was extubated. Repeat CT brain 48 hours after admission was negative for acute findings. He was transferred to telemetry floor on 03/28. Echocardiogram showed ejection fraction of around 50% with moderately dilated left atrium, mildly enlarged right atrium with diastolic dysfunction. Plan: Patient will be transferred to telemetry unit. Mentation improving. Cultures have remained negative. Right hip x-ray and left hand x-ray was done since patient was complaining of some discomfort which were negative for acute fractures or dislocation. Repeat CT brain last night was negative. Continue stroke team. Started on oral diet. Continue current dose of Lantus. His blood pressure is uncontrolled at this time. Add carvedilol. Restart isosorbide mononitrate. Verify home medications and allergies. Check labs in a.m. DC planning. DVT prophylaxis with Lovenox.
[2020-03-28] MEDS ORDERED: cloNIDine 0.1 MG TAB PO PRN (18:34)
[2020-03-28] MEDS ORDERED: GUAIFENESIN SF SOLN 200 MG/10 ML UDCUP PO PRN (18:46)
[2020-03-28] MEDS: Atorvastatin Calcium 40 MG TAB PER TUBE SCH (21:14)
[2020-03-28] MEDS: Enoxaparin Sodium 40 MG/0.4 ML SYRINGE SC SCH (21:15)
[2020-03-28] MEDS: guaiFENesin ER 600 MG TAB PO SCH (21:15)
[2020-03-29] MEDS: Insulin Regular 300 UNITS/3 ML VIAL SC PRN ×2 (00:23→05:40)
[2020-03-29] MEDS ORDERED: ALPRAZolam 0.5 MG TAB PO SCH (01:30)
[2020-03-29 03:43] LABS: #Basophils 0.1 thou/uL (0.0-0.2); #Eosinphils 0.2 thou/uL (0.0-0.7); #Lymphocytes 1.6 thou/uL (1.20-3.40); #Monocytes 1.1 thou/uL (0.11-0.59); #Neutrophils 8.3 thou/uL (1.40-6.50); %Basophils 0.6 % (0.0-1.0); %Eosinophils 1.8 % (0.0-10.0); %Lymphocytes 14.1 % (21.0-51.0); %Monocytes 9.4 % (0.0-10.0); Hemoglobin 12.9 g/dL (14.0-18.0); Mean Corpuscular HGB CONC 33.4 g/dL (32.0-36.0); Mean Corpuscular Hemoglobin 30.2 pg (27.0-31.0); Mean Corpuscular Volume 90.4 fL (78.0-98.0); Mean Platelet Volume 9.6 fL (7.4-10.4); Platelet Count 205 thou/uL (130-400); RBC Distribution Width 13.1 % (11.5-14.5); Red Blood Cell (RBC) Count 4.27 mill/uL (4.70-6.10); White Blood Cell (WBC) Count 11.3 thou/uL (4.8-10.8)
[2020-03-29] MEDS: Labetalol HCl 100 MG/20 ML VIAL SLOW IVP PRN (03:45)
[2020-03-29 04:00] LABS: Phosphorus 3.1 mg/dL (2.3-4.7)
[2020-03-29 04:03] LABS: Anion Gap 11 mmol/L (10-20); BUN (Urea Nitrogen) 18 mg/dL (8.4-25.7); Calc. Creatinine Clearance 0 mL/min (70-130); Calcium 8.3 mg/dL (7.8-10.44); Carbon Dioxide 19 mmol/L (23-31); Chloride 116 mmol/L (98-107); Glucose 208 mg/dL (80-115); Potassium 3.6 mmol/L (3.5-5.1); Sodium 142 mmol/L (136-145)
[2020-03-29] MEDS: Aspirin 325 MG TAB PER TUBE SCH (08:37)
[2020-03-29] MEDS: Carvedilol 6.25 MG TAB PO SCH (08:37)
[2020-03-29] MEDS: guaiFENesin ER 600 MG TAB PO SCH (08:37)
[2020-03-29] MEDS: Pantoprazole 40 MG GRANULES PACKET PER TUBE SCH (08:37)
[2020-03-29] MEDS ORDERED: hydrALAZINE 25 MG TAB PO SCH (09:00)
[2020-03-29] MEDS ORDERED: Amlodipine 10 MG TAB PO SCH (09:00)
--- NOTE | 2020-03-29 09:22 | MRI ---
EXAM: MRI of the brain without contrast HISTORY: Stroke with unresponsiveness COMPARISON: 12/29/[address] brain 03/27/2020 TECHNIQUE: Multiplanar multisequence MR images were obtained of the brain without IV contrast. FINDINGS: Scattered foci of high T2/FLAIR signal in the subcortical and periventricular white matter are likely secondary to small vessel ischemic disease. No restricted diffusion. No hydronephrosis. No extra-axial fluid collection or intracranial hemorrhage. The expected flow voids are present. Corpus callosum, pituitary, and craniocervical junction are within normal limits. The calvarium and overlying soft tissues are unremarkable. The paranasal sinuses and mastoid air cells are well aerated. IMPRESSION: No evidence of acute intracranial abnormality.
[2020-03-29] MEDS: Insulin Glargine 10 UNITS in Pre-Filled Syringe 1 EACH SC SCH (10:07)
--- NOTE | 2020-03-29 13:49 | RAD ---
EXAM: Chest 2 views: HISTORY: Shortness breath and cough COMPARISON: 09/09/2002 FINDINGS: There is a normal-sized cardiomediastinal silhouette. There is no evidence of consolidation, mass, or pleural effusion. Degenerative changes are seen in the spine. IMPRESSION: No evidence of acute cardiopulmonary disease
--- NOTE | 2020-03-29 14:59 | PDOC.DS.DS ---
Provider Date of Admission: 03/26/20 08:38 Date of Discharge: 03/29/20 Admitting Provider: Vinnie Garcia MD Consultations: Infectious Disease, Neurology Primary Care Physician: Jax Andrew PA-C Course Hospital Course: 65-year-old male with hypertension, diabetes mellitus type 2 with COVID-19 v accine (second dose) 2 days prior to admission presents with altered mentation along with questionable seizure-like activity and fall. His systolic blood pressure was over 200. His lactic acid on admission was around 14 with slight elevation of ketones. His pH was 7.2 with bicarbonate of 15, PCO2 39.9 and PO2 of 272. Patient was intubated in ER for airway protection. Initial CT scan of the brain was negative for acute abnormality. CTA of the head and neck was negative for hemodynamically significant stenosis. He was initially started on DKA protocol with IV fluids and insulin drip. Insulin drip was discontinued next morning. Initial CT brain was negative for acute abnormality. His lactic acid gradually improved. Patient was evaluated by multiple consultants including neurology, critical care and infectious disease. He was also started on aspirin and statin for suspected CVA. On 03/27 patient was extubated. Repeat CT brain 48 hours after admission was negative for acute findings. He was transferred to telemetry floor on 03/28. Echocardiogram showed ejection fraction of around 50% with moderately dilated left atrium, mildly enlarged right atrium with diastolic dysfunction. His blood pressure was managed with carvedilol, amlodipine as well as isosorbide mononitrate. Patient did well on the telemetry unit. He had mild dry cough which was probably due to endotracheal tube. Repeat chest x-ray PA and lateral was negative. He was reevaluated by neurology on the day of discharge. EEG was negative for seizures. MRI of the brain was negative for acute CVA. Patient was advised to discontinue Metformin due to severe lactic acidosis on admission. Losartan will be restarted from tomorrow. Repeat basic metabolic profile after 1 week is recommended primary care teresita wheeler advised to follow. Plan of care was discussed with the patient and the family at the bedside who stated understanding. Patient was advised to monitor blood sugars on the daily basis and to maintain a log. Resuscitation Status: 03/26/20 05:12 Resuscitation Status Routine Resuscitation Status: FULL: Full Resuscitation Lab Results: 03/29/20 03:23 03/29/20 03:23 Abnormal Lab Results - Last 48 hrs 03/28/20 03:40: WBC 14.2 H, RBC 4.42 L, Hgb 13.2 L, Hct 39.9 L, Neutrophils % 79.4 H, Lymphocytes % 10.2 L, Neutrophils # 11.3 H, Monocytes # 1.4 H 03/28/20 03:40: Chloride 116 H, Carbon Dioxide 17 L, Creatinine 1.83 H 03/28/20 03:40: C-Reactive Protein 7.84 H 03/29/20 03:23: WBC 11.3 H, RBC 4.27 L, Hgb 12.9 L, Hct 38.6 L, Lymphocytes % 14.1 L, Neutrophils # 8.3 H, Monocytes # 1.1 H 03/29/20 03:23: Chloride 116 H, Carbon Dioxide 19 L, Creatinine 1.60 H Microbiology - Entire Visit 03/26/20 05:43 Venous blood - Right Hand Blood Culture - Preliminary NO GROWTH AT 48 HOURS 03/26/20 05:43 Venous blood - Left Hand Blood Culture - Preliminary NO GROWTH AT 48 HOURS 03/26/20 02:21 Urine [place] catheter Urine Culture - Final NO GROWTH AT 48 HOURS 03/26/20 Unknown Sputum Respiratory Culture - Final Vitals: Vital Signs (12 hours) Temp Pulse Resp BP BP Pulse Ox 03/29/20 12:03 98.1 F 80 18 148/77 H 96 03/29/20 08:37 100 03/29/20 07:45 98.4 F 100 18 180/96 H 96 03/29/20 04:46 98.1 F 95 16 162/82 H 03/29/20 03:45 113 H 206/103 H Weight Admit Weight 190 lb Weight 168 lb Most Recent Monitor Data Heart Rate from ECG 102 NIBP 133/105 NIBP BP-Mean 114 Respiration from ECG 24 SpO2 98 Physical Exam: The patient was seen and examined on the day of discharge. General Appearance: NAD Neck: supple, no JVD Respiratory: no wheezes, no ronchi Cardiovascular: RRR, no gallops Gastrointestinal: soft, non-tender, normal bowel sounds Extremities: no cyanosis Neurological: no new deficit PSYCH: normal affect, A&O x 3 Problem (1) Toxic metabolic encephalopathy Code(s): G92 - TOXIC ENCEPHALOPATHY Status: Acute (2) Acute respiratory failure, unspecified whether with hypoxia or hypercapnia Code(s): J96.00 - ACUTE RESPIRATORY FAILURE, UNSP W HYPOXIA OR HYPERCAPNIA Status: Acute (3) Acute kidney injury superimposed on CKD Code(s): N17.9 - ACUTE KIDNEY FAILURE, UNSPECIFIED; N18.9 - CHRONIC KIDNEY DISEASE, UNSPECIFIED Status: Acute (4) Hyperosmolar hyperglycemic state (HHS) Code(s): E11.00 - TYPE 2 DIAB W HYPROSM W/O NONKET HYPRGLY-HYPROS COMA (NKHHC); E11.65 - TYPE 2 DIABETES MELLITUS WITH HYPERGLYCEMIA Status: Acute (5) Metabolic acidosis Code(s): E87.2 - ACIDOSIS Status: Acute (6) Lactic acidosis Code(s): E87.2 - ACIDOSIS Status: Acute (7) Hypertensive crisis Code(s): I16.9 - HYPERTENSIVE CRISIS, UNSPECIFIED Status: Acute (8) Diabetes mellitus type 2, uncontrolled Code(s): E11.65 - TYPE 2 DIABETES MELLITUS WITH HYPERGLYCEMIA Status: Acute (9) Hypertension, uncontrolled Code(s): I10 - ESSENTIAL (PRIMARY) HYPERTENSION Status: Acute (10) Hyperlipidemia Code(s): E78.5 - HYPERLIPIDEMIA, UNSPECIFIED Status: Chronic (11) Blindness of right eye Code(s): H54.40 - BLINDNESS, ONE EYE, UNSPECIFIED EYE Status: Chronic Time Spent in discharge related activities (mins): 36 Plan Prescriptions: guaiFENesin ER [Mucinex] 600 mg PO Q12HR #20 tab Amlodipine Besylate [amLODIPine Besylate] 5 mg PO DAILY PRN #30 tablet PRN Reason: Sbp Greater Than 160 Carvedilol [Coreg] 6.25 mg PO BID-WM #60 tab Doxycycline Hyclate 100 mg PO BID #10 capsule Losartan Potassium 100 mg PO DAILY #1 tablet Home Medications: Medication Instructions Recorded Confirmed Type Amlodipine Besylate [amLODIPine 5 mg PO DAILY PRN #30 tablet 03/29/20 Rx Besylate] Aspirin 81 mg PER TUBE DAILY #0 tab 03/29/20 Rx Carvedilol [Coreg] 6.25 mg PO BID-WM #60 tab 03/29/20 Rx Doxycycline Hyclate 100 mg PO BID #10 capsule 03/29/20 Rx Isosorbide Mononitrate [Imdur ER] 30 mg PO DAILY tab 03/29/20 Rx Losartan Potassium 100 mg PO DAILY #1 tablet 03/29/20 Rx guaiFENesin ER [Mucinex] 600 mg PO Q12HR #20 tab 03/29/20 Rx Allergies: No Allergy Information Available Allergy (Unverified 03/26/20 02:49) Discharge Instructions:: BMP after 1 week - PCP to arrange/follow STOP Metformin Referrals: Desiree Hennessy MD [Active] - Disposition: HOME Quality CORE MEASURES:: N/A
--- NOTE | 2020-03-29 15:30 | PDOC.NEUPN ---
- Subjective Encounter Date: 04/05/20 Subjective: No acute complaints in the last 24 hours. and daughter at bedside. Patient is somewhat somnolent but according to the daughter he has not gotten the rest of sleep at night. - Objective Vital Signs & Weight: Vital Signs (12 hours) Temp Pulse Resp BP BP Pulse Ox 03/29/20 12:03 98.1 F 80 18 148/77 H 96 03/29/20 08:37 100 03/29/20 07:45 98.4 F 100 18 180/96 H 96 03/29/20 04:46 98.1 F 95 16 162/82 H 03/29/20 03:45 113 H 206/103 H Weight Admit Weight 190 lb Weight 168 lb Most Recent Monitor Data Heart Rate from ECG 102 NIBP 133/105 NIBP BP-Mean 114 Respiration from ECG 24 SpO2 98 I&O: 03/28/20 03/29/20 03/30/20 06:59 06:59 06:59 Intake Total 2163 Output Total 1680 Balance 483 Result Diagrams: 03/29/20 03:23 03/29/20 03:23 Additional Labs: Accuchecks 03/29/20 03/29/20 03/29/20 10:20 05:40 00:07 POC Glucose 97 168 H 217 H 03/28/20 03/27/20 03/26/20 21:07 20:21 21:28 POC Glucose 194 H 219 H 216 H 03/26/20 06:10 POC Glucose 168 H Radiology Reviewed by me: Yes EKG Reviewed by me: Yes ROS - Review of Systems Constitutional: denies: fever, chills, sweats, weakness, malaise, other Eyes: denies: pain, vision change, conjunctivae inflammation, eyelid inflammation, redness, other ENT: denies: ear pain, ear discharge, nose pain, nose discharge, nose conges tion, mouth pain, mouth swelling, throat pain, throat swelling, other Genitourinary: denies: dysuria, frequency, incontinence, hematuria, retention, other Musculoskeletal: denies: neck pain, shoulder pain, arm pain, back pain, hand pain, leg pain, foot pain, other - Medication Medications: Active Medications Generic Name Dose Route Start Last Admin Trade Name Freq PRN Reason Stop Dose Admin Amlodipine Besylate 10 mg 03/29/20 09:00 03/29/20 08:37 Amlodipine 10 Mg Tab PO 10 mg DAILY LELA Administration Aspirin 325 mg 03/27/20 09:00 03/29/20 08:37 Aspirin 325 Mg Tab PER TUBE 325 mg DAILY LELA Administration Atorvastatin Calcium 40 mg 03/26/20 21:00 03/28/20 21:14 Atorvastatin Calcium 40 Mg Tab PER TUBE 40 mg HS LELA Administration Carvedilol 6.25 mg 03/28/20 17:00 03/29/20 08:37 Carvedilol 6.25 Mg Tab PO 6.25 mg BID-WM LELA Administration Clonidine 0.1 mg 03/28/20 18:34 03/28/20 21:14 Clonidine 0.1 Mg Tab PO 0.1 mg Q4H PRN Administration SBP Greater Than 180 Guaifenesin 600 mg 03/28/20 21:00 03/29/20 08:37 Guaifenesin Er 600 Mg Tab PO 600 mg Q12HR LELA Administration Hydralazine HCl 10 mg 03/26/20 16:26 03/27/20 15:05 Hydralazine 20 Mg/Ml Vial SLOW IVP 10 mg Q4H PRN Administration SBP GREATER THAN 160 Hydralazine HCl 25 mg 03/29/20 09:00 03/29/20 08:37 Hydralazine 25 Mg Tab PO 25 mg TID LELA Administration Insulin Glargine 10 units/ 0.1 mls @ 0 mls/hr 03/27/20 21:00 03/29/20 10:07 Miscellaneous Medication SC Not Given BID [facility] Insulin Human Regular 0 units 03/26/20 10:42 03/29/20 05:40 Insulin Regular 300 Units/3 Ml Vial SC 2 unit .MODERATE SLIDING SC PRN Administration Moderate Correctional Scale Insulin Human Regular 0 units 03/26/20 10:42 03/29/20 00:23 Insulin Regular 300 Units/3 Ml Vial SC 2 unit .BEDTIME SLIDING SC PRN Administration Bedtime Correctional Scale Isosorbide Mononitrate 30 mg 03/29/20 09:00 03/29/20 08:37 Isosorbide Mononitrate Er 30 Mg Tab PO 30 mg DAILY LELA Administration Labetalol HCl 20 mg 03/26/20 05:12 03/29/20 03:45 Labetalol Hcl 100 Mg/20 Ml Vial SLOW IVP 20 mg Q4H PRN Administration SBP > 160 use first Pantoprazole Sodium 40 mg 03/28/20 09:00 03/29/20 08:37 Pantoprazole 40 Mg Granules Packet PER TUBE 40 mg DAILY LELA Administration Sodium Chloride 10 ml 03/26/20 21:00 03/29/20 11:41 Flush - Normal Saline 10 Ml Syringe IVF 10 ml Q12HR LELA Administration - Exam General Appearance: awake alert Eye: PERRL ENT: normocephalic atraumatic Neck: supple Respiratory: CTAB Cardiovascular: RRR Gastrointestinal: soft Extremities: no cyanosis Skin: normal turgor Neurological: no new deficit Musculoskeletal: normal tone, no muscle wasting PSYCH: normal affect, normal behavior, oriented to person, oriented to place, somnolent Results - Labs Result Diagrams: 03/29/20 03:23 03/29/20 03:23 Lab results: WBC 11.3 thou/uL (4.8-10.8) H 03/29/20 03:23 Hgb 12.9 g/dL (14.0-18.0) L 03/29/20 03:23 Hct 38.6 % (42.0-52.0) L 03/29/20 03:23 MCV 90.4 fL (78.0-98.0) 03/29/20 03:23 Plt Count 205 thou/uL (130-400) 03/29/20 03:23 Neutrophils % 74.0 % (42.0-75.0) 03/29/20 03:23 Band Neuts % (Manual) 1 % (5-11) L 03/26/20 01:39 ABG pH 7.37 (7.35-7.45) 03/27/20 07:28 ABG pCO2 29.1 mmHg (35.0-45.0) L 03/27/20 07:28 ABG pO2 105.8 mmHg (> 80.0) H 03/27/20 07:28 Sodium 142 mmol/L (136-145) 03/29/20 03:23 Potassium 3.6 mmol/L (3.5-5.1) 03/29/20 03:23 Chloride 116 mmol/L (98-107) H 03/29/20 03:23 Carbon Dioxide 19 mmol/L (23-31) L 03/29/20 03:23 BUN 18 mg/dL (8.4-25.7) 03/29/20 03:23 Creatinine 1.60 mg/dL (0.7-1.3) H 03/29/20 03:23 Glucose 208 mg/dL (80-115) H 03/29/20 03:23 Lactic Acid 2.0 mmol/L (0.5-2.2) 03/26/20 13:25 Calcium 8.3 mg/dL (7.8-10.44) 03/29/20 03:23 Total Bilirubin 0.2 mg/dL (0.2-1.2) 03/26/20 01:39 AST 27 U/L (5-34) 03/26/20 01:39 ALT 20 U/L (8-55) 03/26/20 01:39 Alkaline Phosphatase 175 U/L (40-110) H 03/26/20 01:39 Creatine Kinase 157 U/L (30-200) 03/26/20 13:25 CK-MB (CK-2) 4.0 ng/mL (0-6.6) 03/26/20 09:16 Troponin I 0.053 ng/mL (< 0.028) H 03/26/20 13:25 C-Reactive Protein 7.84 mg/dL (= or < 0.5) H 03/28/20 03:40 Serum Total Protein 6.8 g/dL (5.8-8.1) 03/26/20 01:39 Albumin 2.9 g/dL (3.4-4.8) L 03/26/20 01:39 Urine Ketones Negative mg/dL (Negative) 03/26/20 02:21 Urine Blood 2+ (Negative) A 03/26/20 02:21 Urine Nitrite Negative (Negative) 03/26/20 02:21 Ur Leukocyte Esterase Negative Abelino/uL (Negative) 03/26/20 02:21 Urine RBC 4-6 HPF (0-3) A 03/26/20 02:21 Urine WBC 7-10 HPF (0-3) A 03/26/20 02:21 Ur Squamous Epith Cells 0-3 HPF (0-3) 03/26/20 02:21 Urine Bacteria 1+ HPF (None Seen) A 03/26/20 02:21 - Radiology Interpretation MRI - head Additional Comment: MRI of the brain was negative for acute intracranial pathology. PN A/P (1) Seizure-like activity Code(s): R56.9 - UNSPECIFIED CONVULSIONS Status: Acute (2) Acute kidney injury superimposed on CKD Code(s): N17.9 - ACUTE KIDNEY FAILURE, UNSPECIFIED; N18.9 - CHRONIC KIDNEY DISEASE, UNSPECIFIED Status: Acute (3) Acute respiratory failure, unspecified whether with hypoxia or hypercapnia Code(s): J96.00 - ACUTE RESPIRATORY FAILURE, UNSP W HYPOXIA OR HYPERCAPNIA Status: Acute (4) Diabetes mellitus type 2, uncontrolled Code(s): E11.65 - TYPE 2 DIABETES MELLITUS WITH HYPERGLYCEMIA Status: Acute (5) Hyperosmolar hyperglycemic state (HHS) Code(s): E11.00 - TYPE 2 DIAB W HYPROSM W/O NONKET HYPRGLY-HYPROS COMA (NKHHC); E11.65 - TYPE 2 DIABETES MELLITUS WITH HYPERGLYCEMIA Status: Acute (6) Hypertension, uncontrolled Code(s): I10 - ESSENTIAL (PRIMARY) HYPERTENSION Status: Acute (7) Hypertensive crisis Code(s): I16.9 - HYPERTENSIVE CRISIS, UNSPECIFIED Status: Acute (8) Lactic acidosis Code(s): E87.2 - ACIDOSIS Status: Acute (9) Metabolic acidosis Code(s): E87.2 - ACIDOSIS Status: Acute (10) Toxic metabolic encephalopathy Code(s): G92 - TOXIC ENCEPHALOPATHY Status: Acute (11) Blindness of right eye Code(s): H54.40 - BLINDNESS, ONE EYE, UNSPECIFIED EYE Status: Chronic (12) Hyperlipidemia Code(s): E78.5 - HYPERLIPIDEMIA, UNSPECIFIED Status: Chronic - Plan Daily Plan: plan discussed w/ family ( and daughter at bedside), PT/OT Mr. Eason is a 65-year-old male with medical history significant for chronic kidney disease, hypertension presented to the hospital with fall and the is concerned if he had a seizure. EEG reviewed which was negative for seizure activity. MRI of the brain reviewed which was negative for acute intracranial pathology. Continue neurochecks every 4 hours. No need for seizure medication since history is inconclusive and the above testi ng EEG and MRI of the brain is negative. The results of the findings were discussed in detail with the patient, at bedside and also with the daughter. Continue home medications PT/OT Continue medical management per primary team. Plan discussed in detail with the patient, and daughter at bedside and also with the nursing staff.
--- NOTE | 2020-03-29 15:36 | PDOC.EEG ---
Neurology EEG Report - Report Report: This EEG was performed using 24 channel [employer] video digital EEG machine with 24 disc electrodes. This was an extended 2 hours 5 minutes of inpatient video EEG recording. Digital analysis of the EEG was done for Chuck and seizure detection which revealed no abnormalities. Background: There is a nonsustained posterior background rhythm is 8 to 8.5 Hz minimal reactivity seen with eye opening and closure. Hyperventilation: . Not performed Photic stimulation: No significant response Sleep: Drowsiness and sleep are observed EEG diagnosis: Intermittent irregular theta activity seen during the recording Nonsustained posterior background rhythm Clinical interpretation: This EEG is consistent with mild generalized nonspecific cerebral dysfunction.
[2020-03-29 15:37] VITALS: BP 148/81; TEMP 98.6
[2020-03-29 15:52] VITALS: BMI 24.0
[2020-03-29] MEDS ORDERED: Doxycycline 100 MG CAP PO SCH ×2 (21:00)
--- NOTE | 2020-03-31 00:29 | PQF ---
CLINICAL DOCUMENTATION CLARIFICATION FORM: Dear : Kristopher Nolen Date / Time: 03/31/2020 0028 Please exercise your independent, professional judgment in responding to the clarification form. Clinical indicators are provided on the bottom of this form for your review Please check appropriate box(es): [ ] Sepsis due to UTI [ ] Severe sepsis due to UTI with associated acute organ dysfunction: [ ] Acute Respiratory Failure [ ] Acute Kidney injury [ ] Encephalopathy (metabolic) (septic) [ ] Additional/Other: please specify: [ ] Localized infection without sepsis [ ] Other diagnosis, please specify [ x ] Unable to determine Physician Signature: Date/Time: For continuity of documentation, please document condition throughout progress notes and discharge summary. Thank You. To be completed by CDI/Coding staff for physician review: Present Clinical Indicators - Signs / Symptoms / Labs Results and Location in Medical Record [x] WBC 13.7, Plt count 228, Neutrophils 44, Band 1, Lactic acid 14.0 Laboratory 03/26 [x] PH6.0, Glucose >1000, RBC 4-6, WBC 7-10, Bacteria 1+ Urinalysis 03/26 [x] Urine Culture: No growth Microbiology 03/26 [x] BP 176/94, Pulse 97, Resp 20, Temp 96.4 Vital signs 03/26 [x] Altered mental status ED notes p29 03/26 [x] Possible Sepsis ED notes p29 03/26 [x] UA suggestive of UTI H&P p1 03/26 Dr Garcia [x] Sepsis H&P p5 03/26 Dr Garcia [x] Possible UTI H&P p5 03/26 Dr Garcia [x] Toxic Encephalopathy H&P p5 03/26 Dr Garcia [x] LAST H&P p5 03/26 Dr Garcia [x] Acute respiratory failure PN p7 03/27 Dr Nolen [x] Acidosis Consult 03/26 [x] Blood culture: no growth Laboratory 03/26 Present Risk Factors Results and Location in Medical Record [x] 65 year-old Male H&P p1 03/26 Dr Garcia [x] DM H&P p1 03/26 Dr Garcia [x] UTI H&P p1 03/26 Dr Garcia [x] CKD H&P p1 03/26 Dr Garcia Present Treatments Results and Location in Medical Record [x] IV Vancomycin 1.5 gm APR 12 [x] IVF NS 1L APR 12 [x] IV Zosyn 3.375 gm APR 12 [x] IV Cefepime 2 gm APR 12 [x] Mechanical Ventilator Respiratory Panel 03/26 [x] ID consult Consult Dr Huffman 03/26 CDS/Skin Piler Signature: Miranda Rodriguez Phone #: [phone] Date/Time: 03/31/208 This is a permanent part of the Medical Record [facility]
== END 2020-03-29 16:49 | disposition home or self-care (01) | DRG 637 ==
LOC: ERS 01:32 → CCU 03:12 → OBSVTOIN 08:38 → 2NO 03-28 16:41
PROVIDERS: ADMIT Internal Medicine; ATTEND Internal Medicine
PROC: 5A1945Z Respiratory Ventilation, 24-96 Consecutive Hours (ICD-10-PCS; principal; 2020-03-26)
PROC: 0BH17EZ Insertion of Endotracheal Airway into Trachea, Via Natural or Artificial Opening (ICD-10-PCS; 2020-03-26)
DX: E11.00 Type 2 diabetes mellitus with hyperosmolarity without nonketotic hyperglycemic-hyperosmolar coma (NKHHC) (principal); J96.00 Acute respiratory failure, unspecified whether with hypoxia or hypercapnia; G92 Toxic encephalopathy; N17.9 Acute kidney failure, unspecified; E87.2 Acidosis; I16.9 Hypertensive crisis, unspecified; Z20.822 Contact with and (suspected) exposure to COVID-19; E11.22 Type 2 diabetes mellitus with diabetic chronic kidney disease; I12.9 Hypertensive chronic kidney disease with stage 1 through stage 4 chronic kidney disease, or unspecified chronic kidney disease; E78.5 Hyperlipidemia, unspecified; H54.40 Blindness, one eye, unspecified eye; N18.30 Chronic kidney disease, stage 3 unspecified; E86.0 Dehydration; E83.42 Hypomagnesemia; Z79.899 Other long term (current) drug therapy; Z79.84 Long term (current) use of oral hypoglycemic drugs; Z78.1 Physical restraint status
CPT/HCPCS: 0240U; 31500; 36415; 36416; 36600; 51702; 70450; 70496; 70498; 70551; 71045; 71046; 80048; 80053; 80061; 80202; 80306; 80307; 81003; 81015; 82010; 82550; 82553; 82805; 83605; 83735; 83930; 84100; 84484; 85025; 85610; 85730; 86140; 86780; 87040; 87070; 87086; 87205; 93005; 93306; 94002; 94003; 95712; 95819; 95957; 96365; 96366; 96367; 96368; 96374; 96375; 96376; 99292; G0378; J0360; J0692; J1650; J1815; J2250; J2543; J2704; J3370; J3475; J3480; J3490; Q9967; S0028

== ENCOUNTER 2021-01-11 08:43 | Outpatient (CLI) | payer MEDICARE | END 2021-01-11 08:44 | disposition home or self-care (01) | LOC: NM 08:43 | PROVIDERS: ATTEND Nurse Practitioner Acute Care | DX: R26.9 Unspecified abnormalities of gait and mobility (principal) | CPT/HCPCS: 78803; A9584 ==

== ENCOUNTER 2021-07-11 15:10 | Observation (INO) | payer MEDICARE ==
[2021-07-11 15:56] LABS: #Basophils 0.1 thou/uL (0.0-0.2); #Eosinphils 0.2 thou/uL (0.0-0.7); #Lymphocytes 2.1 thou/uL (1.20-3.40); #Monocytes 0.6 thou/uL (0.11-0.59); #Neutrophils 8.1 thou/uL (1.40-6.50); %Basophils 0.7 % (0.0-1.0); %Lymphocytes 18.8 % (21.0-51.0); %Monocytes 5.8 % (0.0-10.0); %Neutrophils 72.8 % (42.0-75.0); Mean Corpuscular HGB CONC 34.4 g/dL (32.0-36.0); Mean Corpuscular Hemoglobin 30.4 pg (27.0-31.0); Mean Corpuscular Volume 88.3 fL (78.0-98.0); Mean Platelet Volume 8.5 fL (7.4-10.4); Platelet Count 217 thou/uL (130-400); RBC Distribution Width 12.8 % (11.5-14.5); Red Blood Cell (RBC) Count 4.27 mill/uL (4.70-6.10); White Blood Cell (WBC) Count 11.2 thou/uL (4.8-10.8)
[2021-07-11] MEDS ORDERED: cefTRIAXone\\ROCEPHIN 2 GM VIAL ONE (16:43)
[2021-07-11 16:52] LABS: ALT (SGPT) 21 U/L (8-55); AST (SGOT) 44 U/L (5-34); Albumin 2.9 g/dL (3.4-4.8); Alkaline Phosphatase 98 U/L (40-110); Anion Gap 12 mmol/L (10-20); BUN (Urea Nitrogen) 48 mg/dL (8.4-25.7); Bilirubin, Total 0.3 mg/dL (0.2-1.2); CK (CPK) 536 U/L (30-200); Calc. Creatinine Clearance 0 mL/min (70-130); Calcium 8.7 mg/dL (7.8-10.44); Carbon Dioxide 21 mmol/L (23-31); Chloride 111 mmol/L (98-107); Globulin 4.4 g/dL (2.4-3.5); Glucose 63 mg/dL (80-115); Lipase 70 U/L (8-78); Magnesium 2.3 mg/dL (1.6-2.6); Potassium 4.8 mmol/L (3.5-5.1); Protein, Total 7.3 g/dL (5.8-8.1); Sodium 139 mmol/L (136-145)
[2021-07-11] MEDS ORDERED: Azithromycin 500 MG VIAL ONE (17:10)
[2021-07-11 19:05] LABS: Bacteria/HPF None Seen HPF (None Seen); Bilirubin Negative (Negative); Blood, Urine 2+ (Negative); Clarity Clear (Clear); Glucose, Urine (Dipstick) 500 mg/dL (Negative); Ketone, Urine Negative (Negative); Leukocyte Negative Leu/uL (Negative); Nitrite Negative (Negative); Protein, Urine (Dipstick) 300 mg/dL (Neg-Trace); RBC/HPF 0-3 HPF (0-3); Specific Gravity, Urine 1.017 (1.002-1.036); Squamous Epithelial 0-3 HPF (0-3); Urobilinogen Normal mg/dL (Less than 2); WBC/HPF 0-3 HPF (0-3); pH, Urine 6.5 (5.0-9.0)
[2021-07-11 19:06] LABS: Sperm/HPF 1+ HPF (None Seen)
[2021-07-11] MEDS ORDERED: Dextrose 5% in Water 1,000 ML IV SCH (20:15)
[2021-07-11] MEDS ORDERED: HumaLOG 300 UNITS/3 ML VIAL SC PRN (21:01)
[2021-07-11] MEDS ORDERED: Dextrose 50% Abboject 50 ML SYRINGE SLOW IVP PRN (21:01)
[2021-07-11] MEDS ORDERED: Ondansetron PF 4 MG/2 ML Vial IVP PRN (21:01)
[2021-07-11] MEDS ORDERED: Dextrose 5% in Water 1,000 ML IV PRN (21:01)
[2021-07-11] MEDS ORDERED: Acetaminophen 325 MG TAB PO PRN (21:01)
[2021-07-11] MEDS ORDERED: hydrALAZINE 20 MG/ML VIAL SLOW IVP PRN (21:04)
[2021-07-11 22:04] LABS: Free T4 (Free Thyroxine) 0.98 ng/dL (0.70-1.48)
[2021-07-11 23:34] VITALS: BMI 29.6
[2021-07-12] MEDS ORDERED: FOLIC ACID PO SCH (03:45)
[2021-07-12] MEDS ORDERED: HERB PO SCH (03:45)
[2021-07-12] MEDS ORDERED: MV MN PO SCH (03:45)
[2021-07-12] MEDS ORDERED: IRON PO SCH (03:45)
[2021-07-12 04:43] LABS: #Eosinphils 0.2 thou/uL (0.0-0.7); #Lymphocytes 1.7 thou/uL (1.20-3.40); #Monocytes 0.6 thou/uL (0.11-0.59); #Neutrophils 6.2 thou/uL (1.40-6.50); %Basophils 0.2 % (0.0-1.0); %Eosinophils 2.2 % (0.0-10.0); %Lymphocytes 19.5 % (21.0-51.0); %Monocytes 7.1 % (0.0-10.0); %Neutrophils 71.1 % (42.0-75.0); Mean Corpuscular HGB CONC 34.4 g/dL (32.0-36.0); Mean Corpuscular Hemoglobin 30.5 pg (27.0-31.0); Mean Corpuscular Volume 88.7 fL (78.0-98.0); Mean Platelet Volume 8.8 fL (7.4-10.4); Platelet Count 219 thou/uL (130-400); RBC Distribution Width 12.7 % (11.5-14.5); Red Blood Cell (RBC) Count 3.26 mill/uL (4.70-6.10); White Blood Cell (WBC) Count 8.7 thou/uL (4.8-10.8)
[2021-07-12 05:23] LABS: Anion Gap 11 mmol/L (10-20); BUN (Urea Nitrogen) 49 mg/dL (8.4-25.7); Calc. Creatinine Clearance 21 mL/min (70-130); Calcium 7.8 mg/dL (7.8-10.44); Carbon Dioxide 21 mmol/L (23-31); Chloride 109 mmol/L (98-107); Glucose 358 mg/dL (80-115); Potassium 4.5 mmol/L (3.5-5.1); Sodium 136 mmol/L (136-145)
[2021-07-12] MEDS: HumaLOG 300 UNITS/3 ML VIAL SC PRN ×2 (06:12→12:24)
[2021-07-12 07:42] LABS: SARS-CoV-2 PCR by NAA Not Detected (NotDetected)
[2021-07-12] MEDS ORDERED: Carvedilol 25 MG TAB PO SCH (08:00)
[2021-07-12] MEDS ORDERED: Heparin 5,000 UNITS/ML VIAL SC SCH (09:00)
[2021-07-12] MEDS ORDERED: Amlodipine 5 MG TAB PO SCH (09:00)
[2021-07-12] MEDS ORDERED: Hydrochlorothiazide 25 MG TAB PO SCH (09:00)
[2021-07-12] MEDS ORDERED: Citrucel 500 MG TAB PO SCH (09:00)
[2021-07-12] MEDS ORDERED: Atorvastatin Calcium 40 MG TAB PO SCH (09:00)
[2021-07-12] MEDS ORDERED: Aspirin Chewable 81 MG TAB PO SCH (09:00)
[2021-07-12 13:36] VITALS: TEMP 98.1
[2021-07-12 14:42] VITALS: BP 165/83
[2021-07-12] MEDS ORDERED: cefTRIAXone\\ROCEPHIN 1 GM in Sodium Chloride 0.9% 100 ML IVPB SCH (17:00)
[2021-07-12] MEDS ORDERED: Azithromycin 500 MG in Sodium Chloride 0.9% 250 ML 250 ML IVPB SCH (17:30)
== END 2021-07-12 16:30 | disposition home or self-care (01) ==
LOC: ERS 15:10 → 2NO 18:14 → INTOOBSV 18:14
PROVIDERS: ADMIT Hospitalist; ATTEND Hospitalist
DX: E11.649 Type 2 diabetes mellitus with hypoglycemia without coma (principal); D72.829 Elevated white blood cell count, unspecified; I13.0 Hypertensive heart and chronic kidney disease with heart failure and stage 1 through stage 4 chronic kidney disease, or unspecified chronic kidney disease; E11.22 Type 2 diabetes mellitus with diabetic chronic kidney disease; N18.30 Chronic kidney disease, stage 3 unspecified; I50.32 Chronic diastolic (congestive) heart failure; H54.61 Unqualified visual loss, right eye, normal vision left eye; E78.5 Hyperlipidemia, unspecified; Z79.4 Long term (current) use of insulin; Z79.82 Long term (current) use of aspirin; Z79.84 Long term (current) use of oral hypoglycemic drugs; Z79.899 Other long term (current) drug therapy; Z88.8 Allergy status to other drugs, medicaments and biological substances; Z20.822 Contact with and (suspected) exposure to COVID-19
CPT/HCPCS: 71045; 80048; 82550; 82962 ×2; 83036; 83605; 83690; 83735; 84145; 84439; 84481; 84484; 85025; 87040; 87086; 93005; 96372; G0378 ×2; U0003; U0005; 36415; 36416; 80053; 81003; 81015; 84443; 96361; 96365; J0456; J0696; J1644

== ENCOUNTER 2021-09-08 09:04 | Outpatient (CLI) | payer MEDICARE | END 2021-09-08 09:05 | disposition home or self-care (01) | LOC: BICRAD 09:04 | PROVIDERS: ATTEND Internal Medicine | DX: M25.561 Pain in right knee (principal); M79.604 Pain in right leg ==

== ENCOUNTER 2021-09-28 12:24 | Outpatient (CLI) | payer MEDICARE | END 2021-09-28 12:25 | disposition home or self-care (01) | LOC: BICRAD 12:24 | PROVIDERS: ATTEND Internal Medicine | DX: M25.551 Pain in right hip (principal); M25.571 Pain in right ankle and joints of right foot; R29.898 Other symptoms and signs involving the musculoskeletal system; M47.816 Spondylosis without myelopathy or radiculopathy, lumbar region; E11.22 Type 2 diabetes mellitus with diabetic chronic kidney disease; I12.0 Hypertensive chronic kidney disease with stage 5 chronic kidney disease or end stage renal disease; N18.5 Chronic kidney disease, stage 5; D63.1 Anemia in chronic kidney disease; E11.65 Type 2 diabetes mellitus with hyperglycemia; E78.5 Hyperlipidemia, unspecified; R80.9 Proteinuria, unspecified; D50.9 Iron deficiency anemia, unspecified | CPT/HCPCS: 36415; 72100; 80053; 80061; 82570; 83036; 83540; 83550; 84156; 85014; 85018 ==

== ENCOUNTER 2021-10-18 12:32 | Outpatient (CLI) | payer MEDICARE | END 2021-10-18 12:33 | disposition home or self-care (01) | LOC: MRI 12:32 | PROVIDERS: ATTEND Internal Medicine | DX: M51.36 Other intervertebral disc degeneration, lumbar region (principal); M51.37 Other intervertebral disc degeneration, lumbosacral region | CPT/HCPCS: 72148 ==

== ENCOUNTER 2022-01-30 14:08 | Emergency (ER) | payer MEDICARE ==
[2022-01-30] MEDS ORDERED: Ondansetron PF 4 MG/2 ML Vial ONE (14:39)
[2022-01-30 14:55] LABS: #Basophils 0.1 thou/uL (0.0-0.2); #Eosinphils 0.3 thou/uL (0.0-0.7); #Lymphocytes 1.5 thou/uL (1.20-3.40); #Neutrophils 8.8 thou/uL (1.40-6.50); %Basophils 0.6 % (0.0-1.0); %Eosinophils 2.9 % (0.0-10.0); %Lymphocytes 13.1 % (21.0-51.0); %Monocytes 8.3 % (0.0-10.0); %Neutrophils 75.1 % (42.0-75.0); Hemoglobin 8.7 g/dL (14.0-18.0); Mean Corpuscular HGB CONC 32.7 g/dL (32.0-36.0); Mean Corpuscular Hemoglobin 29.5 pg (27.0-31.0); Mean Platelet Volume 8.2 fL (7.4-10.4); Platelet Count 350 10x3/uL (130-400); RBC Distribution Width 15.8 % (11.5-14.5); Red Blood Cell (RBC) Count 2.95 mill/uL (4.70-6.10); White Blood Cell (WBC) Count 11.8 10x3/uL (4.8-10.8)
[2022-01-30 15:13] LABS: ALT (SGPT) 65 U/L (8-55); AST (SGOT) 95 U/L (5-34); Albumin 2.4 g/dL (3.4-4.8); Alkaline Phosphatase 531 U/L (40-110); Anion Gap 14 mmol/L (10-20); BUN (Urea Nitrogen) 53 mg/dL (8.4-25.7); Bilirubin, Total 0.4 mg/dL (0.2-1.2); CK (CPK) 277 U/L (30-200); Calc. Creatinine Clearance 0 mL/min (70-130); Calcium 8.4 mg/dL (7.8-10.44); Carbon Dioxide 31 mmol/L (23-31); Chloride 93 mmol/L (98-107); Estimated GFR 23; Globulin 4.8 g/dL (2.4-3.5); Glucose 295 mg/dL (80-115); Lipase 114 U/L (8-78); Protein, Total 7.2 g/dL (5.8-8.1); Sodium 134 mmol/L (136-145)
[2022-01-30] MEDS ORDERED: Iopamidol-370 76% 500 ML 1 ML ONE (16:08)
== END 2022-01-30 17:17 | disposition home or self-care (01) ==
LOC: ERS 14:08
DX: R10.9 Unspecified abdominal pain (principal); E11.22 Type 2 diabetes mellitus with diabetic chronic kidney disease; I12.0 Hypertensive chronic kidney disease with stage 5 chronic kidney disease or end stage renal disease; N18.6 End stage renal disease; Z99.2 Dependence on renal dialysis; Z79.899 Other long term (current) drug therapy
CPT/HCPCS: 74177; 80053; 82550; 83690; 85025; 93005; 96374; J2405; Q9967

== ENCOUNTER 2022-01-31 20:36 | Emergency (ER) | payer MEDICARE ==
[2022-01-31 21:49] LABS: #Basophils 0.1 thou/uL (0.0-0.2); #Eosinphils 0.4 thou/uL (0.0-0.7); #Lymphocytes 1.5 thou/uL (1.20-3.40); #Monocytes 0.6 thou/uL (0.11-0.59); #Neutrophils 9.3 thou/uL (1.40-6.50); %Basophils 0.8 % (0.0-1.0); %Eosinophils 3.1 % (0.0-10.0); %Lymphocytes 12.6 % (21.0-51.0); %Monocytes 5.2 % (0.0-10.0); %Neutrophils 78.3 % (42.0-75.0); Hemoglobin 8.6 g/dL (14.0-18.0); Mean Corpuscular HGB CONC 31.6 g/dL (32.0-36.0); Mean Corpuscular Hemoglobin 28.9 pg (27.0-31.0); Mean Corpuscular Volume 91.2 fl (78.0-98.0); Mean Platelet Volume 8.1 fL (7.4-10.4); Platelet Count 356 10x3/uL (130-400); RBC Distribution Width 15.8 % (11.5-14.5); Red Blood Cell (RBC) Count 2.97 mill/uL (4.70-6.10); White Blood Cell (WBC) Count 11.8 10x3/uL (4.8-10.8)
[2022-01-31 22:09] LABS: ALT (SGPT) 80 U/L (8-55); AST (SGOT) 103 U/L (5-34); Albumin 2.7 g/dL (3.4-4.8); Alkaline Phosphatase 556 U/L (40-110); Anion Gap 15 mmol/L (10-20); BUN (Urea Nitrogen) 28 mg/dL (8.4-25.7); Bilirubin, Total 0.5 mg/dL (0.2-1.2); Calc. Creatinine Clearance 0 mL/min (70-130); Calcium 8.7 mg/dL (7.8-10.44); Carbon Dioxide 31 mmol/L (23-31); Chloride 95 mmol/L (98-107); Estimated GFR 38; Glucose 173 mg/dL (80-115); Magnesium 2.3 mg/dL (1.6-2.6); Potassium 3.9 mmol/L (3.5-5.1); Protein, Total 7.7 g/dL (5.8-8.1); Sodium 137 mmol/L (136-145)
[2022-01-31 22:15] LABS: Bilirubin Negative (Negative); Blood, Urine Negative (Negative); Clarity Clear (Clear); Glucose, Urine (Dipstick) 500 mg/dL (Negative); Ketone, Urine Negative (Negative); Leukocyte Negative Leu/uL (Negative); Nitrite Negative (Negative); Protein, Urine (Dipstick) 300 mg/dL (Neg-Trace); RBC/HPF 0-3 HPF (0-3); Specific Gravity, Urine 1.019 (1.002-1.036); Squamous Epithelial None Seen HPF (0-3); Urobilinogen Normal mg/dL (Less than 2); WBC/HPF 0-3 HPF (0-3)
[2022-01-31 22:16] LABS: Bacteria/HPF 1+ HPF (None Seen)
== END 2022-01-31 23:05 | disposition home or self-care (01) ==
LOC: ERS 20:36
DX: E11.22 Type 2 diabetes mellitus with diabetic chronic kidney disease (principal); N18.6 End stage renal disease; I12.0 Hypertensive chronic kidney disease with stage 5 chronic kidney disease or end stage renal disease; Z99.2 Dependence on renal dialysis
CPT/HCPCS: 36415; 71045; 80053; 81003; 81015; 83735; 83880; 85025; 87086; 93005

== ENCOUNTER 2022-02-07 11:07 | Inpatient (IN) | payer MEDICARE ==
[2022-02-07] MEDS ORDERED: Cefepime 2 GM VIAL ONE (11:36)
[2022-02-07 11:50] LABS: Actual Bicarbonate (HCO3v) 26 mEq/L (22-28); Analyzer IN Cardio ER; Base Excess 3.9 mEq/L (-2.0 to +3.0); Calcium, Ionized (venous) 0.97 mmol/L (1.16-1.32); Chloride (VBG) 93 mmol/L (98-106); Hemoglobin (Hb) 8.5 g/dL (12.6-17.4); Sodium 129.4 mmol/L (133-146); pH (venous) 7.55 (7.32-7.43)
[2022-02-07 11:55] LABS: #Lymphocytes 1.2 thou/uL (1.20-3.40); #Monocytes 1.5 thou/uL (0.11-0.59); %Basophils 0.4 % (0.0-1.0); %Eosinophils 0.2 % (0.0-10.0); %Lymphocytes 11.1 % (21.0-51.0); %Monocytes 14.3 % (0.0-10.0); %Neutrophils 73.9 % (42.0-75.0); Hemoglobin 7.7 g/dL (14.0-18.0); Mean Corpuscular HGB CONC 31.7 g/dL (32.0-36.0); Mean Corpuscular Hemoglobin 28.1 pg (27.0-31.0); Mean Corpuscular Volume 88.8 fl (78.0-98.0); Mean Platelet Volume 9.1 fL (7.4-10.4); Platelet Count 253 10x3/uL (130-400); RBC Distribution Width 16.1 % (11.5-14.5); Red Blood Cell (RBC) Count 2.72 mill/uL (4.70-6.10); White Blood Cell (WBC) Count 10.8 10x3/uL (4.8-10.8)
[2022-02-07 12:07] LABS: INR-International Normal Ratio 1.1; PTT 44.6 sec (22.9-36.1); Prothrombin Time 14.8 sec (12.0-14.7)
[2022-02-07 12:11] LABS: SARS-CoV-2 NAA Rapid Test Not Detected (NotDetected)
[2022-02-07 12:16] LABS: ALT (SGPT) 88 U/L (8-55); AST (SGOT) 120 U/L (5-34); Albumin 2.2 g/dL (3.4-4.8); Alkaline Phosphatase 651 U/L (40-110); Anion Gap 18 mmol/L (10-20); BUN (Urea Nitrogen) 77 mg/dL (8.4-25.7); Bilirubin, Total 1.4 mg/dL (0.2-1.2); Calc. Creatinine Clearance 0 mL/min (70-130); Calcium 7.7 mg/dL (7.8-10.44); Carbon Dioxide 25 mmol/L (23-31); Chloride 94 mmol/L (98-107); Estimated GFR 15; Globulin 4.1 g/dL (2.4-3.5); Glucose 381 mg/dL (80-115); Lipase 122 U/L (8-78); Potassium 4.2 mmol/L (3.5-5.1); Protein, Total 6.3 g/dL (5.8-8.1); Sodium 133 mmol/L (136-145)
[2022-02-07 12:32] LABS: CKMB 3.5 ng/mL (0-6.6)
[2022-02-07] MEDS ORDERED: Azithromycin 500 MG VIAL ONE (12:33)
[2022-02-07] MEDS ORDERED: Heparin 10,000 UNITS/ 10 ML VIAL ONE (12:38)
[2022-02-07] MEDS ORDERED: Aspirin Chewable 81 MG TAB ONE ×2 (12:59→13:01)
[2022-02-07] MEDS ORDERED: Dextrose 5% in Water 1,000 ML IV PRN (13:03)
[2022-02-07] MEDS ORDERED: Dextrose 50% Abboject 50 ML SYRINGE SLOW IVP PRN (13:03)
[2022-02-07] MEDS ORDERED: Senokot S 8.6-50 MG TAB PO PRN (13:06)
[2022-02-07] MEDS ORDERED: Ondansetron ODT 4 MG TAB PER TUBE PRN (13:06)
[2022-02-07] MEDS ORDERED: Acetaminophen 325 MG TAB PO PRN (13:06)
[2022-02-07] MEDS ORDERED: Calcium Carbonate 500 MG ChewTAB PO PRN (13:06)
[2022-02-07] MEDS ORDERED: Ondansetron PF 4 MG/2 ML Vial IVP PRN (13:06)
[2022-02-07] MEDS ORDERED: Acetaminophen 650 MG Suppository PR PRN (13:06)
[2022-02-07 13:37] LABS: HBSAg Index 0.26 S/CO (0-0.99); Hep B Core Total Ab Non-Reactive (NonReactive); Hep B Core Total Index 0.07 S/CO (0-0.79); Hep B Surf Ag Non-Reactive S/CO (NonReactive); Hep C IgG Ab Non-Reactive (NonReactive); Hep C Index 0.14 S/CO (0-0.79)
[2022-02-07 13:47] LABS: Hep B Surf AB Reactive (NonReactive)
[2022-02-07] MEDS ORDERED: Piperacillin/Tazobactam 2.25 GM in Sodium Chloride 0.9% 100 ML IVPB SCH (14:00)
[2022-02-07] MEDS ORDERED: Heparin 5,000 UNITS/ML VIAL SC SCH (15:00)
[2022-02-07 15:04] LABS: Lactic Acid 1.7 mmol/L (0.5-2.2)
[2022-02-07 15:05] VITALS: BMI 27.8
[2022-02-07] MEDS ORDERED: Acetaminophen 325 MG TAB ONE (16:42)
[2022-02-07] MEDS: Sodium Chloride 0.9% 1,000 ML IV SCH (16:55)
[2022-02-07 17:31] LABS: Bacteria/HPF None Seen HPF (None Seen); Bilirubin Negative (Negative); Blood, Urine 3+ (Negative); Clarity Extra Turbid (Clear); Glucose, Urine (Dipstick) Normal (Negative); Ketone, Urine Negative (Negative); Leukocyte 500 Leu/uL (Negative); Nitrite Negative (Negative); Protein, Urine (Dipstick) 300 mg/dL (Neg-Trace); RBC/HPF 21-50 HPF (0-3); Specific Gravity, Urine 1.027 (1.002-1.036); Squamous Epithelial None Seen HPF (0-3); Urobilinogen Normal mg/dL (Less than 2); WBC/HPF Greater than 50 HPF (0-3); pH, Urine 6.5 (5.0-9.0)
[2022-02-07] MEDS ORDERED: Labetalol HCl 100 MG/20 ML VIAL SLOW IVP PRN (17:44)
[2022-02-07] MEDS ORDERED: Scopolamine 1.5 mg/72 hour Patch TD SCH (18:00)
[2022-02-07 18:19] VITALS: BP 103/53
[2022-02-07] MEDS ORDERED: methylPREDNISolone Sod Succ 40 MG VIAL ONE (18:22)
[2022-02-07] MEDS ORDERED: Piperacillin/Tazobactam 3.375 GM VIAL ONE (18:22)
[2022-02-07] MEDS: methylPREDNISolone Sod Succ 40 MG VIAL IVP SCH (18:26)
[2022-02-07] MEDS: Piperacillin/Tazobactam 3.375 GM in Sodium Chloride 0.9% 100 ML IVPB SCH (18:27)
[2022-02-07] MEDS: Budesonide 0.5 MG/2 ML NEB NEB SCH (19:01)
[2022-02-07] MEDS ORDERED: INSULIN REGULAR IN 0.9 % NACL 100 UNIT/100 ML BAG ONE (19:14)
[2022-02-07] MEDS: Insulin Regular 300 UNITS/3 ML VIAL SC PRN ×2 (19:16→22:30)
[2022-02-07] MEDS ORDERED: Famotidine 20 MG TAB PER TUBE SCH (21:00)
[2022-02-07] MEDS ORDERED: Famotidine/PF 20 mg/2ml Vial SLOW IVP SCH (21:00)
[2022-02-07] MEDS ORDERED: Albumin 25% 25 GM/100 ML BOT IVPB SCH (22:00)
[2022-02-07] MEDS: Heparin 5,000 UNITS/ML VIAL SC SCH (22:28)
[2022-02-07] MEDS: Lansoprazole 15 MG/5 ML (BATCHED)UDCUP PER TUBE SCH (22:28)
[2022-02-07] MEDS: Sodium Bicarbonate Tab 325 MG TAB PER TUBE SCH (22:30)
[2022-02-07] MEDS: Glycopyrrolate 1 MG TAB PO SCH (22:30)
[2022-02-07] MEDS: levETIRAcetam 500 mg/5 ml Oral Solution PO SCH (22:30)
[2022-02-08] MEDS: methylPREDNISolone Sod Succ 40 MG VIAL IVP SCH ×2 (02:29→08:25)
[2022-02-08 03:33] LABS: #Lymphocytes 0.9 thou/uL (1.20-3.40); #Monocytes 0.6 thou/uL (0.11-0.59); #Neutrophils 9.5 thou/uL (1.40-6.50); %Basophils 0.3 % (0.0-1.0); %Eosinophils 0.1 % (0.0-10.0); %Monocytes 5.1 % (0.0-10.0); %Neutrophils 86.6 % (42.0-75.0); Hemoglobin 8.1 g/dL (14.0-18.0); Mean Corpuscular HGB CONC 31.7 g/dL (32.0-36.0); Mean Corpuscular Hemoglobin 28.1 pg (27.0-31.0); Mean Corpuscular Volume 88.9 fl (78.0-98.0); Mean Platelet Volume 9.1 fL (7.4-10.4); Platelet Count 262 10x3/uL (130-400); RBC Distribution Width 16.1 % (11.5-14.5); Red Blood Cell (RBC) Count 2.86 mill/uL (4.70-6.10)
[2022-02-08 03:55] LABS: ALT (SGPT) 78 U/L (8-55); AST (SGOT) 106 U/L (5-34); Albumin 2.6 g/dL (3.4-4.8); Alkaline Phosphatase 580 U/L (40-110); Anion Gap 17 mmol/L (10-20); BUN (Urea Nitrogen) 40 mg/dL (8.4-25.7); Bilirubin, Total 1.2 mg/dL (0.2-1.2); Calc. Creatinine Clearance 30 mL/min (70-130); Calcium 8.5 mg/dL (7.8-10.44); Carbon Dioxide 27 mmol/L (23-31); Chloride 97 mmol/L (98-107); Estimated GFR 27; Globulin 4.8 g/dL (2.4-3.5); Glucose 256 mg/dL (80-115); Potassium 3.6 mmol/L (3.5-5.1); Protein, Total 7.4 g/dL (5.8-8.1); Sodium 137 mmol/L (136-145)
[2022-02-08] MEDS: Insulin Regular 300 UNITS/3 ML VIAL SC PRN ×4 (05:01→16:05)
[2022-02-08] MEDS: Piperacillin/Tazobactam 3.375 GM in Sodium Chloride 0.9% 100 ML IVPB SCH (06:26)
[2022-02-08] MEDS: Budesonide 0.5 MG/2 ML NEB NEB SCH (06:30)
[2022-02-08] MEDS: Heparin 5,000 UNITS/ML VIAL SC SCH (08:18)
[2022-02-08] MEDS: Lansoprazole 15 MG/5 ML (BATCHED)UDCUP PER TUBE SCH (08:23)
[2022-02-08] MEDS: Sodium Chloride 0.9% 1,000 ML IV SCH (08:27)
[2022-02-08] MEDS: Sodium Bicarbonate Tab 325 MG TAB PER TUBE SCH (08:27)
[2022-02-08] MEDS: Glycopyrrolate 1 MG TAB PO SCH (08:27)
[2022-02-08] MEDS: levETIRAcetam 500 mg/5 ml Oral Solution PO SCH (08:27)
[2022-02-08] MEDS ORDERED: Aspirin 81 mg Enteric Coated Tablet PO SCH (09:00)
[2022-02-08] MEDS ORDERED: Insulin Glargine 30 UNITS/0.3 ML VIAL SC SCH ×2 (09:45→21:00)
[2022-02-08] MEDS ORDERED: Vancomycin Diaylsis Sliding Scale (Wt 71-99) FS SCH (12:15)
[2022-02-08] MEDS ORDERED: Vancomycin 1.5 GRAM/300 ML BAG 1.5 GM in Premix Bag 1 BAG IVPB SCH (12:15)
[2022-02-08 16:20] VITALS: TEMP 97.4
[2022-02-08] MEDS ORDERED: Famotidine/PF 20 mg/2ml Vial SLOW IVP SCH (21:00)
[2022-02-08] MEDS ORDERED: Polyethylene Glycol 3350 17 GM Packet PO SCH (21:00)
[2022-02-08] MEDS ORDERED: methylPREDNISolone Sod Succ 40 MG VIAL IVP SCH (21:00)
== END 2022-02-08 16:55 | disposition hospice, home (50) | DRG 871 ==
LOC: ERS 11:07 → ERHOLD 13:14 → IMCU/EMU 20:53
PROVIDERS: ADMIT Internal Medicine; ATTEND Internal Medicine
DX: A41.9 Sepsis, unspecified organism (principal); G92.8 Other toxic encephalopathy; J69.0 Pneumonitis due to inhalation of food and vomit; N18.6 End stage renal disease; J96.01 Acute respiratory failure with hypoxia; I21.A1 Myocardial infarction type 2; I69.954 Hemiplegia and hemiparesis following unspecified cerebrovascular disease affecting left non-dominant side; N39.0 Urinary tract infection, site not specified; E87.20 Acidosis, unspecified; E44.0 Moderate protein-calorie malnutrition; I13.2 Hypertensive heart and chronic kidney disease with heart failure and with stage 5 chronic kidney disease, or end stage renal disease; I50.32 Chronic diastolic (congestive) heart failure; Z51.5 Encounter for palliative care; Z66 Do not resuscitate; E11.22 Type 2 diabetes mellitus with diabetic chronic kidney disease; G40.909 Epilepsy, unspecified, not intractable, without status epilepticus; D63.1 Anemia in chronic kidney disease; Z88.8 Allergy status to other drugs, medicaments and biological substances; Z79.899 Other long term (current) drug therapy; Z68.27 Body mass index [BMI] 27.0-27.9, adult; Z99.2 Dependence on renal dialysis; I69.920 Aphasia following unspecified cerebrovascular disease
CPT/HCPCS: 36415; 36416; 70450; 71045; 76999; 80053; 81003; 81015; 82010; 82140; 82533; 82553; 82805; 83605; 83690; 83880; 84484; 85025; 85610; 85730; 86704; 87040; 87077; 87086; 87149; 87186; 93005; 94640; J0456; J0692; J1644; J1815; J2543; J2920; J3370; J3490; J7050; J7620; J7626; P9047; S0028